=== PATIENT | male | born 1960 | race Caucasian/White ===

== ENCOUNTER 2016-05-27 10:26 | Inpatient (IN) | payer OTHER ==
[~2016-05-27] VITALS: Ht 180.3 cm; Wt 102.0 kg
[~2016-05-27 10:26] MED LIST: ALPR1TAB7 PO; AMLO2.5T78 PO; ATEN50TA PO; BENA20TA48 PO; HYDR-3027 PO; HYDR2TAB3 PO; TRIA1CAP PO
[2016-05-27 10:32] VITALS: Ht 180.3 cm; Wt 102.0 kg
[2016-05-27] MEDS ORDERED: ONDANSETRON 4 MG INJ IV STA (11:46)
[2016-05-27] MEDS ORDERED: morphine 4 MG/ML VIAL IV STA (11:46)
[2016-05-27] MEDS ORDERED: SOD CHLORIDE 0.9% 1,000 ML IV STA (11:46)
--- NOTE | 2016-05-27 11:51 | ERA ---
ER Documentation Chief Complaint Date/Time DATE: 05/27/16 TIME: 11:47 Chief Complaint pt bib family with c/o abd pain and vomiting for a few days HPI Patient is a 55-year-old male who presents with diffuse abdominal pain with nausea and vomiting for the last 2-3 days. He was referred here by his primary care physician after evaluation at their office. He states that the very beginning of the illness he had some diarrhea which is resolved. He says the pain was worse at onset and has a slightly improved. Nothing seems to make the pain better or worse is slightly improved on its own. He is never experienced an illness like this before. He denies any fever, hematemesis, melena, hematochezia, dysuria, hematuria. He denies any flank or back pain, abnormal bleeding, bruising, or rashes. He denies any chest pain, shortness of breath, otalgia, headache, vertigo, dizziness or loss of consciousness. And the remainder review systems are negative. ROS All systems reviewed and are negative except as per history of present illness. Medications Home Meds Reported Medications Lubiprostone* (Amitiza*) 24 Mcg Capsule, 24 MCG PO BID, #60 CAP 05/27/16 Fenofibrate Nanocrystallized* (Fenofibrate*) 145 Mg Tablet, 145 MG PO DAILY, TAB 05/27/16 Oxycodone HCl/Acetaminophen (Percocet 10-325 mg Tablet) 1 Each Tablet, 1 EACH PO QID Y for PAIN, TAB 05/27/16 Paroxetine Hcl* (Paxil*) 20 Mg Tablet, 20 MG PO DAILY, TAB 05/27/16 Gabapentin* (Gabapentin*) 300 Mg Capsule, 300 MG PO QID, #90 CAP 05/27/16 Cyclobenzaprine Hcl* (Cyclobenzaprine Hcl*) 10 Mg Tablet, 10 MG PO QHS Y for MUSCLE SPASMS, #60 TAB 05/27/16 Morphine Sulfate* (Ms Contin*) 15 Mg Tablet.sa, 15 MG PO Q12, TAB 05/27/16 Amlodipine Besylate* (Norvasc*) 5 Mg Tablet, 5 MG PO DAILY, TAB 05/27/16 Benazepril Hcl* (Benazepril Hcl*) 20 Mg Tablet, 20 MG PO DAILY, TAB 01/08/14 Atenolol* (Atenolol*) 50 Mg Tablet, 50 MG PO DAILY, TAB 01/08/14 Triamterene-HCTZ* (Triamterene-HCTZ*) 37.5 - 25 Mg Capsule, 1 CAP PO DAILY, CAP 01/08/14 Discontinued Reported Medications Amlodipine Besylate* (Amlodipine Besylate*) 2.5 Mg Tablet, 5 MG PO DAILY, TAB 01/08/14 Alprazolam* (Alprazolam*) 1 Mg Tablet, 1 MG PO TID Y for AGITATION/ANXIETY, TAB 01/08/14 Hydrocodone Bit/Acetaminophen (Vicodin HP 10-300) 1 Each Tablet, 2 EACH PO Q4H Y for MODERATE PAIN LEVEL 4-6, TAB 01/08/14 Hydromorphone Hcl* (Hydromorphone Hcl*) 2 Mg Tablet, 2 MG PO Q4H Y for PAIN, TAB 01/08/14 Allergies Allergies: Coded Allergies: No Known Allergies (Verified Allergy, Unknown, 05/27/16) PMhx/Soc History of Surgery: No (denies) Anesthesia Reaction: No Hx Neurological Disorder: No Hx Respiratory Disorders: No Hx Cardiac Disorders: Yes (HTN) Hx Psychiatric Problems: No Hx Miscellaneous Medical Probl: Yes (DJD, Htn) Hx Alcohol Use: No Hx Substance Use: No Hx Tobacco Use: No FmHx Family History: coronary disease, diabetes Physical Exam Vitals Vital Signs Date Time Temp Pulse Resp B/P Pulse Ox O2 Delivery O2 Flow Rate FiO2 05/27/16 14:26 98.6 77 19 110/60 97 Room Air 05/27/16 11:55 98.4 78 20 91/55 98 Room Air 05/27/16 10:32 98.4 85 20 91/55 98 Physical Exam Const: [] Well-developed well-nourished male lying on the bed appears ill but nontoxic Head: Atraumatic normocephalic Eyes: Conjunctive appear icteric ENT: Normal External Ears, Nose and Mouth. Neck: Full range of motion..~ No meningismus. Resp: Clear to auscultation bilaterally Cardio: Regular rate and rhythm, no murmurs Abd: Soft, mild tenderness to palpation diffusely, no rebound, no guarding, no masses, non distended. No bowel sounds Skin: No petechiae or rashes Back: No midline or flank tenderness Ext: No cyanosis, or edema Neur: Awake and alert oriented 3 with a GCS of 15 Psych: Normal Mood and Affect Result Diagram: 05/27/16 1150 05/27/16 1150 Results 24 hrs Laboratory Tests Test 05/27/16 11:50 05/27/16 11:52 Activated Partial Thromboplast Time 32.0Sec Alanine Aminotransferase (ALT/SGPT) 359IU/L Albumin 3.8g/dl Albumin/Globulin Ratio 1.26 Alkaline Phosphatase 92IU/L Anion Gap 20 Aspartate Amino Transf (AST/SGOT) 213IU/L Basophils # 0.010^3/ul Basophils % 0.1% Blood Urea Nitrogen 49mg/dl Calcium Level 8.4mg/dl Carbon Dioxide Level 29mmol/L Chloride Level 90mmol/L Creatinine 2.70mg/dl Direct Bilirubin 2.70mg/dl Eosinophils # 0.010^3/ul Eosinophils % 0.0% Globulin 3.00g/dl Glucose Level 111mg/dl Hematocrit 41.9% Hemoglobin 14.0g/dl INR International Normalized Ratio 1.08 Indirect Bilirubin 0.5mg/dl Lipase 1583U/L Lymphocytes # 1.010^3/ul Lymphocytes % 9.0% Mean Corpuscular Hemoglobin 30.4pg Mean Corpuscular Hemoglobin Concent 33.4g/dl Mean Corpuscular Volume 90.9fl Mean Platelet Volume 12.7fl Monocytes # 0.810^3/ul Monocytes % 6.9% Neutrophils # 9.510^3/ul Neutrophils % 83.0% Nucleated Red Blood Cells # 0.010^3/ul Nucleated Red Blood Cells % 0.0/100WBC Platelet Count 37145^3/UL Potassium Level 4.1mmol/L Prothrombin Time 14.0Sec Prothrombin Time Ratio 1.1 Red Blood Count 4.6110^6/ul Red Cell Distribution Width 13.3% Sodium Level 135mmol/L Total Bilirubin 3.2mg/dl Total Protein 6.8g/dl White Blood Count 11.510^3/ul Urine Amorphous Urates FEW Urine Bilirubin 2+ Urine Clarity CLEAR Urine Color ATUL Urine Glucose NEGATIVE% Urine Hemoglobin TRACE Urine Ictotest POSITIVE Urine Ketones NEGATIVE Urine Leukocyte Esterase NEGATIVE Urine Microscopic RBC 0-2/HPF Urine Microscopic WBC NONE SEEN/HPF Urine Nitrite NEGATIVE Urine Specific [place] 1.020 Urine Total Protein TRACE Urine Urobilinogen 0.2 E.U./dL Urine pH 5.5 Current Medications Medications (Trade) Dose Ordered Sig/Elizabeth Route PRN Reason Start Time Stop Time Status Last Admin Dose Admin Sodium Chloride (NS) 1,000 ml @ 1,000 mls/hr Q1H STAT IV 05/27/16 11:46 05/27/16 12:45 DC 05/27/16 12:08 Morphine Sulfate (morphine) 4 mg ONCE STAT IV 05/27/16 11:46 05/27/16 11:48 DC 05/27/16 12:08 Ondansetron HCl (Zofran Inj) 4 mg ONCE STAT IV 05/27/16 11:46 05/27/16 11:48 DC 05/27/16 12:08 Procedures/MDM Differential includes but is not limited to gastroenteritis, cholecystitis, cholangitis, cholelithiasis, pancreatitis, acute hepatitis, bowel obstruction, dehydration CT of the abdomen and pelvis confirmed acute pancreatitis Ultrasound shows cholelithiasis with the common bile duct to be of upper limits , there is some sludging noted too 1439: Patient's examination remains unchanged. I have consulted the hospitalist to have him admitted for further evaluation. I feel that surgery and GI should also be involved in his care at this time. Departure Diagnosis: Primary Impression: Pancreatitis Qualified Code: K85.11 - Acute biliary pancreatitis with uninfected necrosis Additional Impressions: Cholelithiases Qualified Code: K80.71 - Calculus of gallbladder and bile duct with obstruction without cholecystitis Jaundice Abdominal pain Qualified Code: R10.84 - Generalized abdominal pain Condition: ANTOINE Parker May 27, 2016 11:51
[2016-05-27 12:25] LABS: ALBUMIN 3.8 g/dl (3.3-4.9)
[2016-05-27 12:26] LABS: POTASSIUM 4.1 mmol/L (3.5-5.1)
[2016-05-27] MEDS ORDERED: AMLO5TAB4 PO (12:26)
[2016-05-27] MEDS ORDERED: MORP15TA92 PO (12:27)
[2016-05-27 12:28] LABS: ALBUMIN/GLOBULIN RATIO 1.26; BILIRUBIN,DIRECT 2.7 mg/dl (0.00-0.20); BILIRUBIN,INDIRECT 0.5 mg/dl (0-1.1); BILIRUBIN,TOTAL 3.2 mg/dl (0.2-1.3); CREATININE 2.7 mg/dl (0.61-1.24); INR 1.08; PT RATIO 1.1; TOTAL PROTEIN 6.8 g/dl (6.1-8.1)
[2016-05-27] MEDS ORDERED: CYCL-319 PO (12:28)
[2016-05-27 12:29] LABS: CALCIUM 8.4 mg/dl (8.4-10.2)
[2016-05-27] MEDS ORDERED: GABA300C16 PO (12:29)
[2016-05-27] MEDS ORDERED: PARO20TA58 PO (12:29)
[2016-05-27] MEDS ORDERED: OXYC-209 PO (12:30)
[2016-05-27] MEDS ORDERED: FENO145T19 PO (12:30)
[2016-05-27] MEDS ORDERED: LUBI24CA7 PO (12:31)
[2016-05-27 12:36] LABS: ADD UMIC YES; URINE BILIRUBIN (Dip) 2+ (NEGATIVE); URINE BLOOD (Dip) TRACE (NEGATIVE); URINE COLOR AMBER (YELLOW); URINE GLUCOSE (Dip) NEGATIVE (NEGATIVE); URINE KETONES (Dip) NEGATIVE (NEGATIVE); URINE LEUKOCYTE ESTERASE (Dip) NEGATIVE (NEGATIVE); URINE NITRITE (Dip) NEGATIVE (NEGATIVE); URINE TOTAL PROTEIN (Dip) TRACE (NEGATIVE); URINE UROBILINOGEN (Dip) 0.2 E.U./dL (0.1-1.0)
[2016-05-27 12:48] LABS: BASOPHILS % 0.1 % (0.0-2.0); HEMATOCRIT 41.9 % (42.0-52.0); MEAN CORPUSCULAR HEMOGLOBIN 30.4 pg (29.0-33.0); MEAN CORPUSCULAR HGB CONC 33.4 g/dl (32.0-37.0); MEAN CORPUSCULAR VOLUME 90.9 fl (82.0-101.0); MEAN PLATELET VOLUME 12.7 fl (7.4-10.4); MONOCYTES % 6.9 % (0.0-11.0); PLATELET COUNT 186 10^3/UL (140-440); RED BLOOD COUNT 4.61 10^6/ul (4.70-6.10); RED CELL DISTRIBUTION WIDTH 13.3 % (11.5-14.5); UNCORRECTED WBC 11.5 10^3/ul (4.8-10.8); WHITE BLOOD COUNT 11.5 10^3/ul (4.8-10.8)
[2016-05-27 12:49] LABS: MONOCYTE # 0.8 10^3/ul (0.3-0.9); NEUTROPHIL # 9.5 10^3/ul (1.6-7.5)
--- NOTE | 2016-05-27 12:57 | RADRPT ---
PROCEDURE: CT abdomen and pelvis without IV contrast. CLINICAL INDICATION: Abdominal pain TECHNIQUE: CT scan of the abdomen and pelvis without contrast was performed on the [employer] volumetric [address] scanner. The patient was scanned without intravenous contrast. Coronal and sagittal refo rmatted images were obtained from the axial source images. The CTDI vol is 21.88 mGy and the DLP is 1488 mGy-cm. COMPARISON: None. FINDINGS: CT abdomen: Mild ground-glass opacities in the lung bases is seen. A trace left pleural effusion is seen. The remaining lung bases are clear. The heart size is not enlarged and is without pericardial thickenin g or effusion. The liver is normal in size and is without focal mass or intrahepatic biliary dilatation. Fatty infi ltration of the liver is seen. The spleen is normal in size and homogeneous in density. The stomach is grossly unremarkable. mild peripancreatic stranding is seen. In addition, stranding is seen in the bilateral anterior pararenal fascia. The pancreas is otherwise normal in size and contour. No pancreatic ductal dilatation is seen. The gallbladder and biliary tree are unremarkable and there is no evidence for biliary dilatation. The adrenal glands are symmetric and normal. The kidneys ar e symmetrically unremarkable as well. No renal calculus or obstructive uropathy or mass lesion is s een. The aorta is of normal in caliber . There is no retroperitoneal lymphadenopathy. The magdalena hepatis region is clear. The small and large bowel and mesentery, as visualized, are unremarkable. The nor mal appendix is identified. A small volume of ascites is seen. CT pelvis: The pelvic organs are normal. The pelvic sidewalls and inguinal regions are clear. No pelvic mass, lymphadenopathy, or free fluid is seen. No acute inflammation is seen. The urinary bladder is wit hin normal limits. The surrounding osseous structures are unremarkable. No osteolytic or osteoblastic lesion is detect ed. Degenerative spondylosis in the lower thoracic and lumbar spine is seen. Anterior bridging synde smophytes are seen with relative preservation of the disk space is seen in the thoracic spine. A lef t hip arthroplasty is identified. IMPRESSION: 1. Trace left pleural effusion with bibasilar ground-glass opacities. 2. Mild stranding in the peripancreatic region and anterior pararenal fascia, questionable of this represents early pancreatitis. Correlation with amylase and lipase levels may be of value as well a s a short interval follow-up. 3. Small volume of ascites. 4. Fatty infiltration of the liver. RPTAT: HPNM Francisco Forman, Physician Date Time Electronically viewed and signed by Francisco Forman, Physician on 05/27/2016 12:57 /
[2016-05-27 13:05] LABS: ICTOTEST POSITIVE (NEGATIVE)
[2016-05-27 13:07] LABS: URINE RBCS 0-2 /HPF (0)
--- NOTE | 2016-05-27 14:06 | RADRPT ---
PROCEDURE: US Abdomen. CLINICAL INDICATION: Abdominal pain TECHNIQUE: Multiple real-time images were acquired of the patient's right upper quadrant utilizing a high resolution transducer. The images were reviewed on a high-resolution PACS workstation. COMPARISON: None FINDINGS: The liver demonstrates increased echogenicity and size and no focal lesions are seen. The liver ranjith ures 15 cm in size. Multiple gallstones are seen with/. There is no pericholecystic fluid. The gallb ladder wall measures 1.4 mm in size. No intrahepatic biliary dilatation is seen. The common bile d uct measures 6.3 mm in maximal dimension. The pancreas is not well visualized. No free fluid is id entified. The right kidney is of normal size, and demonstrate normal echogenicity and morphology. The right k idney measures 12 cm. There is no dilatation of the right collecting system. There are no perineph antonio fluid collections. There are no areas of increased echogenicity to suggest nephrolithiasis. IMPRESSION: 1. Cholelithiasis and sludge with borderline common bile duct size. 2. Fatty infiltration of the liver. RPTAT: HPNM Physician Gigi Date Time Electronically viewed and signed by Physician Gigi on 05/27/2016 14:05 /
[2016-05-27 14:26] VITALS: TEMP 98.6
[2016-05-27] MEDS ORDERED: ONDANSETRON 4 MG INJ IV PRN ×2 (15:00→16:30)
[2016-05-27] MEDS ORDERED: ACETAMINOPHEN 325 MG TAB PO PRN ×2 (15:00→16:30)
[2016-05-27] MEDS ORDERED: ALBUTEROL/IPRATROPIUM (NEB) 3 ML AMP HHN PRN (16:30)
[2016-05-27] MEDS ORDERED: HYDROCODONE/APAP (5/325) TAB PO PRN (16:30)
[2016-05-27] MEDS ORDERED: DOCUSATE SODIUM 100 MG CAP PO PRN (16:30)
[2016-05-27] MEDS ORDERED: MAGNESIUM HYDROXIDE 30ML CUP PO PRN (16:30)
[2016-05-27] MEDS ORDERED: NACL 0.9% 3 ML SYG IV SCH (16:30)
[2016-05-27] MEDS ORDERED: NA PHOSPHATE/BIPHOS 133 ML ENEMA PR PRN (16:30)
[2016-05-27] MEDS ORDERED: hydrALAzine 20 MG INJ IV PRN (16:30)
[2016-05-27 17:45] LABS: HAAIG REFLEX REFLEX FILED
[2016-05-27] MEDS: SOD CHLORIDE 0.9% 1,000 ML IV SCH ×2 (18:04→19:30)
[2016-05-27] MEDS: morphine 2 MG INJ IV PRN ×2 (18:46→23:11)
[2016-05-27 18:53] LABS: HEPATITIS B CORE ANTIBODY NEGATIVE (NEGATIVE)
[2016-05-27] MEDS ORDERED: INFLUENZA VIRUS VACCINE 0.5 ML SYG IM* ONE (19:30)
[2016-05-27 20:08] VITALS: BP 121/62; RESP 16
[2016-05-27] MEDS: GABAPENTIN 300 MG CAP PO SCH (21:10)
[2016-05-27] MEDS: HEPARIN 5,000 UNIT/0.5 ML SYG SC SCH (21:12)
[2016-05-28] MEDS: LORAZEPAM 2 MG INJ IV PRN ×2 (00:24→14:17)
[2016-05-28] MEDS: morphine 2 MG INJ IV PRN ×5 (03:10→21:02)
--- NOTE | 2016-05-28 03:16 | HP ---
DATE OF ADMISSION: 05/27/2016 CHIEF COMPLAINT: Abdominal pain, nausea, vomiting. HISTORY OF PRESENT ILLNESS: A 55-year-old male with past medical history of degenerative joint dise ase, hypertension, and hepatitis in possible chronic pain who presents with abdominal pain, sort of diffuse in nature. He has also had some nonbilious and nonbloody vomiting and nausea symptoms for t he last 3 days. Apparently he went to his primary care doctor, denied fevers, and primary care doct or stated the patient needed to come in to the ER. The patient also had some diarrhea symptoms that seem to have resolved as well. He stated nothing seems to make the pain feel better or worse. It has slightly improved on its own. He has never had pain like this before. He denied any upper or l ower GI bleeding, no hematuria, no dysuria. No chest pain or shortness of breath. No dizziness or loss of consciousness. When he came into the ER today, his lipase was around 1500. His bilirubin w as 3.2. His AST and ALT were in the 200 to 300 range, and he was showing signs of jaundice as well. PAST MEDICAL HISTORY: As stated above. ALLERGIES: NO KNOWN DRUG ALLERGIES. MEDICATIONS AT HOME: Include 1. Cyclobenzaprine 10 mg at bedtime p.r.n. 2. Norvasc 5 mg daily. 3. Atenolol 50 mg daily. 4. Benazepril 20 mg daily. 5. Phenobarbital 145 mg daily. 6. Gabapentin 300 mg q.i.d. 7. MS Contin 15 mg q. 12 hours. 8. Percocet 10/325 q.i.d. p.r.n. 9. Paxil 20 mg daily. 10. Triamterene/hydrochlorothiazide 37.5/25, one capsule daily. 11. Amitiza 24 mcg b.i.d. FAMILY HISTORY: Positive for diabetes and coronary artery disease. PAST SURGICAL HISTORY: Unknown. SOCIAL HISTORY: Denies alcohol, IV drug abuse, or smoking history. PHYSICAL EXAMINATION: VITAL SIGNS: T-max 98.6, pulse of 77 to 85, respirations 19 to 20, blood pressure 91 to 110 systoli c over 55 to 60 diastolic, saturating at 98% on room air. GENERAL: The patient is lying in bed, answering questions appropriately. No acute distress. HEENT: Pupils equal, round, react to light. Extraocular muscles intact. Sclerae appears to be sli ghtly icteric. NECK: Supple, no thyromegaly. LUNGS: Clear to auscultation bilaterally. CARDIOVASCULAR: S1, S2 heard. No rubs or gallops. ABDOMEN: Mild tenderness to palpation in all 4 quadrants. No rebound or guarding. Decreased bowel sounds. Otherwise soft. MUSCULOSKELETAL: No lower extremity edema bilaterally. NEUROLOGIC: No focal deficits. LABORATORIES: WBC 11.5, hemoglobin 14.0, hematocrit 41.9, platelets 186. Sodium 135, potassium 4.1 , chloride 90, CO2 29, BUN 49, creatinine 2.7, and then he had this lipase is 1583, AST is 213, ALT is 359. Total bilirubin is 3.2, direct is 2.7. Hepatitis C antibody is reactive. IMAGING: Again, CT abdomen and pelvis was performed that showed trace left pleural effusion, bibasi lar ground glass opacity, mild stranding in peripancreatic region and anterior pararenal fascia, ear ly pancreatitis, small volume of ascites, fatty infiltration of the liver. Gallbladder ultrasound, cholelithiasis and sludge with borderline common bile duct size. ASSESSMENT AND PLAN: A 55-year-old male coming in with abdominal pain, nausea, and vomiting for 3 d ays with elevated LFTs and pancreatitis. 1. Abdominal pain secondary to combination of pancreatitis and conjugated hyperbilirubinemia. We w ill get a GI and surgery consults. We will order for MRCP, check TSH, A1c, and lipid panel, trend L FTs as well, check hepatitis panel. The patient may benefit from ERCP, but we will see what MRCP sh ows first. 2. Degenerative joint disease on p.r.n. pain medications. Monitor for now. 3. Questionable history of hypertension based on the home medicine list. Continue hydralazine p.r. n. for now. 4. Gastrointestinal prophylaxis. Proton pump inhibitor. 5. Deep venous thrombosis prophylaxis. Heparin subQ. 6. Renal insufficiency. Creatinine is 2.7. Looking back at records from when the patient was here 2 years ago, creatinine was normal at less than 1.0. The patient is having acute renal failure. W e are going to get renal consult for now and consider low dose IV fluids as well. Dictated By: LAILA DICKSON Conf#: [id number] [facility]#: [id number]
[2016-05-28] MEDS: SOD CHLORIDE 0.9% 1,000 ML IV SCH ×6 (03:22→22:25)
[2016-05-28] MEDS ORDERED: PANTOPRAZOLE 40 MG INJ IV SCH (06:00)
[2016-05-28 06:48] LABS: POTASSIUM 3.3 mmol/L (3.5-5.1)
[2016-05-28 06:51] LABS: CREATININE 2.23 mg/dl (0.61-1.24)
[2016-05-28 06:52] LABS: CALCIUM 7.4 mg/dl (8.4-10.2); MAGNESIUM 1.9 mg/dl (1.7-2.5); PHOSPHORUS 2.4 mg/dl (2.5-4.9)
[2016-05-28 07:00] VITALS: BP 119/62; PULSE 88; RESP 19
--- NOTE | 2016-05-28 07:26 | PN ---
Date/Time of Note Date/Time of Note DATE: 05/28/16 TIME: 07:23 Assessment/Plan VTE Prophylaxis VTE Prophylaxis Intervention: heparin Lines/Catheters IV [facility] Peripheral IV Assessment/Plan Chief Complaint/Hosp Course ASSESSMENT AND PLAN: 55-year-old male coming in with abdominal pain, nausea, and vomiting for 3 days with elevated LFTs and pancreatitis. 1. Abdominal pain - improving - secondary to combination of pancreatitis and conjugated hyperbilirubinemia. Lipase lower toda - f/u GI and surgery consult rec's - f/u MRCP, TSH, A1c, and lipid panel - trend LFTs as well, check hepatitis panel. The patient may benefit from ERCP, but we will see what MRCP shows first. - continue NPO, f/u lipase levels 2. Degenerative joint disease on p.r.n. pain medications. Monitor for now. 3. Questionable history of hypertension based on the home medicine list. Continue hydralazine p.r.n. for now. 4. Gastrointestinal prophylaxis. Proton pump inhibitor. 5. Deep venous thrombosis prophylaxis. Heparin subQ. 6. Renal insufficiency. Creatinine is 2.7- >2.3 Looking back at records from when the patient was here 2 years ago, creatinine was normal at less than 1.0. The patient is having acute renal failure. - continue IVF's, f/u renal consult rec's. - replete low k and Phos Problems: Subjective 24 Hr Interval Summary Free Text/Dictation Pt has less n/v, less abd pain, awaiting MRCP. Exam/Review of Systems Vital Signs Vitals Vital Signs Date Time Temp Pulse Resp B/P Pulse Ox O2 Delivery O2 Flow Rate FiO2 05/27/16 20:08 99.0 79 16 121/62 97 05/27/16 14:26 Room Air Intake and Output 05/27/16 05/27/16 05/28/16 15:00 23:00 07:00 Intake Total 1200 ml Output Total 400 ml Balance 800 ml Exam GENERAL: The patient is lying in bed, answering questions appropriately. No acute distress. HEENT: Pupils equal, round, react to light. Extraocular muscles intact. Sclerae appears to be slightly icteric. NECK: Supple, no thyromegaly. LUNGS: Clear to auscultation bilaterally. CARDIOVASCULAR: S1, S2 heard. No rubs or gallops. ABDOMEN: Mild tenderness to palpation in all 4 quadrants. No rebound or guarding. Decreased bowel sounds. Otherwise soft. MUSCULOSKELETAL: No lower extremity edema bilaterally. NEUROLOGIC: No focal deficits. Results Result Diagram: 05/27/16 1150 05/28/16 0533 Results 24 hrs Laboratory Tests Test 05/27/16 11:50 05/27/16 11:52 05/27/16 17:00 05/28/16 05:33 Activated Partial Thromboplast Time 32.0 Alanine Aminotransferase (ALT/SGPT) 359 H Albumin 3.8 Albumin/Globulin Ratio 1.26 Alkaline Phosphatase 92 Anion Gap 20 H 19 H Aspartate Amino Transf (AST/SGOT) 213 H Basophils # 0.0 Basophils % 0.1 Blood Urea Nitrogen 49 H 43 H Calcium Level 8.4 7.4 L Carbon Dioxide Level 29 24 Chloride Level 90 L 96 L Creatinine 2.70 H 2.23 H Direct Bilirubin 2.70 H Eosinophils # 0.0 Eosinophils % 0.0 Globulin 3.00 Glucose Level 111 89 Hematocrit 41.9 L Hemoglobin 14.0 INR International Normalized Ratio 1.08 Indirect Bilirubin 0.5 Lipase 1583 H 408 H Lymphocytes # 1.0 Lymphocytes % 9.0 L Mean Corpuscular Hemoglobin 30.4 Mean Corpuscular Hemoglobin Concent 33.4 Mean Corpuscular Volume 90.9 Mean Platelet Volume 12.7 H Monocytes # 0.8 Monocytes % 6.9 Neutrophils # 9.5 H Neutrophils % 83.0 H Nucleated Red Blood Cells # 0.0 Nucleated Red Blood Cells % 0.0 Platelet Count 186 Potassium Level 4.1 3.3 L Prothrombin Time 14.0 Prothrombin Time Ratio 1.1 Red Blood Count 4.61 L Red Cell Distribution Width 13.3 Sodium Level 135 136 Total Bilirubin 3.2 H Total Protein 6.8 White Blood Count 11.5 H Urine Amorphous Urates FEW Urine Bilirubin 2+ H Urine Clarity CLEAR Urine Color ATUL Urine Glucose NEGATIVE Urine Hemoglobin TRACE Urine Ictotest POSITIVE Urine Ketones NEGATIVE Urine Leukocyte Esterase NEGATIVE Urine Microscopic RBC 0-2 Urine Microscopic WBC NONE SEEN Urine Nitrite NEGATIVE Urine Specific [place] 1.020 Urine Total Protein TRACE Urine Urobilinogen 0.2 E.U./dL Urine pH 5.5 Free Thyroxine 1.09 Hepatitis B Core Total Antibody NEGATIVE Hepatitis B Surface Antigen NEGATIVE Hepatitis C Antibody REACTIVE H Cholesterol Level 140 Cholesterol/HDL Ratio 5.0 HDL Cholesterol 28 LDL Cholesterol, Calculated 71 Magnesium Level 1.9 Phosphorus Level 2.4 L Thyroid Stimulating Hormone (TSH) Pending Triglycerides Level 205 H Medications Medications Current Medications Ondansetron HCl (Zofran Inj) 4 mg Q6H PRN IV NAUSEA AND/OR VOMITING; Start 05/27 at 16:30 Acetaminophen (Tylenol Tab) 650 mg Q6H PRN PO PAIN LEVEL 1-3 OR FEVER; Start at 16:30 Acetaminophen/ Hydrocodone Bitart (Driver (5/325)) 1 tab Q6H PRN PO MODERATE PAIN LEVEL 4-6; Start 05/27/16 at 16:30 Morphine Sulfate (morphine) 2 mg Q4H PRN IV SEVERE PAIN LEVEL 7-10 Last administered on 05/28/16 07:05; Admin Dose 2 MG; Start 05/27/16 at 16:30 Docusate Sodium (Colace) 100 mg Q12H PRN PO CONSTIPATION; Start 05/27/16 at 16: 30 Magnesium Hydroxide (Milk Of Mag) 30 ml DAILY PRN PO CONSTIPATION; Start at 16:30 Sodium Biphosphate/ Sodium Phosphate (Fleet Enema) 133 ml DAILY PRN [place] CONSTIPATION; Start 05/27/16 at 16:30 Pantoprazole (Protonix Iv) 40 mg DAILY@06 IV Last administered on 05/28/16 05: 35; Admin Dose 40 MG; Start 05/28/16 at 06:00 Heparin Sodium (Porcine) (Heparin (5000 Units/0.5 ml)) 5,000 unit Q12 SC Last administered on 05/27/16 21:12; Admin Dose 5,000 UNIT; Start 05/27/16 at 21:00 Lorazepam 0.5 mg 0.5 mg Q6H PRN IV ANXIETY Last administered on 05/28/16 00:24 ; Admin Dose 0.5 MG; Start 05/27/16 at 16:30 Sodium Chloride (NS) 1,000 ml @ 100 mls/hr Q10H IV Last administered on 03:22; Admin Dose 100 MLS/HR; Start 05/27/16 at 16:25 Hydralazine HCl (Apresoline) 10 mg Q6H PRN IV ELEVATED BLOOD PRESSURE; Start at 16:30 Clonidine (Catapres) 0.1 mg Q6H PRN PO ELEVATED BLOOD PRESSURE; Start 05/27/16 at 16:30 Nitroglycerin 1 tab 1 tab Q5M PRN SL ANGINA; Start 05/27/16 at 16:30 Sodium Chloride (NS) 1,000 ml @ 100 mls/hr Q10H IV ; Start 05/27/16 at 19:30 Gabapentin 300 mg 300 mg TID PO Last administered on 05/27/16t 21:10; Admin Dose 300 MG; Start 05/27/16 at 21:00 Potassium Phosphate/Sodium Chloride (K Phos (Meq)/NS) 254.5455 ml @ 63.636 m... ONCE ONCE IVPB ; Start 05/28/16 at 08:30; Stop 05/28/16 at 12:29 LAILA MOORE May 28, 2016 07:26
[2016-05-28 08:01] LABS: ALBUMIN 3.4 g/dl (3.3-4.9)
[2016-05-28 08:03] LABS: BILIRUBIN,DIRECT 0.7 mg/dl (0.00-0.20); BILIRUBIN,INDIRECT 0.4 mg/dl (0-1.1); BILIRUBIN,TOTAL 1.1 mg/dl (0.2-1.3)
[2016-05-28 08:04] LABS: TOTAL PROTEIN 6.7 g/dl (6.1-8.1)
[2016-05-28] MEDS ORDERED: POTASSIUM PHOSPHATE 20 MEQ in SOD CHLORIDE 0.9% 250 ML IVPB ONE (08:30)
[2016-05-28 08:40] LABS: THYROID STIMULATING HORMONE 0.342 MIU/L (0.465-4.680)
--- NOTE | 2016-05-28 08:41 | CONS ---
Date/Time of Note Date/Time of Note DATE: 05/28/16 TIME: 08:41 Assessment/Plan Assessment/Plan Additional Assessment/Plan Abdominal pain Nausea Vomiting * Evaluate PUD versus cholelithiasis versus pancreatitis * Stool OB Pancreatitis * MRCP 05-27-16 * The liver is normal in size and is without focal mass or intrahepatic biliary dilatation. Fatty infiltration of the liver is seen. The spleen is normal in size and homogeneous in density. The stomach is grossly unremarkable. mild peripancreatic stranding is seen. In addition, stranding is seen in the bilateral anterior pararenal fascia. The pancreas is otherwise normal in size and contour. No pancreatic ductal dilatation is seen. The gallbladder and biliary tree are unremarkable and there is no evidence for biliary dilatation. * ERCP if clinically indicated * Trend labs * N.p.o. * IVF hydration * Recommend surgery consult * May be secondary to lipids versus polypharmacy GERD * PPI therapy Chronic kidney disease * Renally dose medication * May benefit from nephrology consult Hepatitis C * Review hepatitis C serology (genotype and RNA quantitative) Further recommendations depend on clinical course Patient seen in collaboration with Dr. Mcbride Consultation Date/Type/Reason Admit Date/Time May 27, 2016 at 14:57 Type of Consultation: Gastroenterology Reason for Consultation Abdominal pain Hx of Present Illness 55-year-old male that presented to ED with complaints of abdominal pain, nausea , and nonbloody bilious vomiting. Pt states that symptoms started last Sunday with intense epigastric pain, nausea and vomiting. Pt reports last episode of vomiting was this past and has not been able to eat anything at all. Pt denies hematemesis. Pt reports diarrhea only on Sunday but that has resolved. Pt denies blood in stools. Pt reports fever and chills with the symptom onset but that has since resolved. Pt reports sick contacts with stomach flu. Pt denies travel outside [place], recent antibiotic use, EtOH, new medications, and previous episode. Pt denies hx of pancreatics. He states that one time gallstones showed up on a MRI and he was asymptomatic. At that time he declined elective cholecystectomy. Patient has PMH of hepatitis C contracted Hep C via IVDU in 1986 and was treated in 1999 with ribavirin and interferon and states that he has been clear, chronic kidney disease with 40% of kidney function, hypertension, bilateral hip replacement 2 years ago, chronic pain, GERD. Past Medical History Medical History: gallstones, GERD, hepatitis, hypertension Past Surgical History Past Surgical Hx: other (Bilateral hip replacement) Social History Alcohol Use: none Smoking Status: Former smoker Exam/Review of Systems Vital Signs Vitals Vital Signs Date Time Temp Pulse Resp B/P Pulse Ox O2 Delivery O2 Flow Rate FiO2 05/27/16 20:08 99.0 79 16 121/62 97 05/27/16 14:26 Room Air Intake and Output 05/27/16 05/27/16 05/28/16 15:00 23:00 07:00 Intake Total 1200 ml Output Total 400 ml Balance 800 ml Exam Constitutional: alert, oriented, well developed Psych: nl mood/affect Head: normocephalic Eyes: EOMI ENMT: nl external ears & nose, nl lips & teeth, nl nasal mucosa & septum Respiratory: normal air movement Cardiovascular: regular rate and rhythm Gastrointestinal: soft, tender (Epigastric) Musculoskeletal: nl extremities to inspection Neurological: INFORMATION SYSTEMS SECURITY DEVELOPER II-XII intact Results Result Diagram: 05/27/16 1150 05/28/16 0533 Results 24 hrs Laboratory Tests Test 05/27/16 11:50 05/27/16 11:52 05/27/16 17:00 05/28/16 05:33 Activated Partial Thromboplast Time 32.0 Alanine Aminotransferase (ALT/SGPT) 359 H 214 H Albumin 3.8 3.4 Albumin/Globulin Ratio 1.26 Alkaline Phosphatase 92 79 Anion Gap 20 H 19 H Aspartate Amino Transf (AST/SGOT) 213 H 101 #H Basophils # 0.0 Basophils % 0.1 Blood Urea Nitrogen 49 H 43 H Calcium Level 8.4 7.4 L Carbon Dioxide Level 29 24 Chloride Level 90 L 96 L Creatinine 2.70 H 2.23 H Direct Bilirubin 2.70 H 0.70 #H Eosinophils # 0.0 Eosinophils % 0.0 Globulin 3.00 Glucose Level 111 89 Hematocrit 41.9 L Hemoglobin 14.0 INR International Normalized Ratio 1.08 Indirect Bilirubin 0.5 0.4 Lipase 1583 H 408 H Lymphocytes # 1.0 Lymphocytes % 9.0 L Mean Corpuscular Hemoglobin 30.4 Mean Corpuscular Hemoglobin Concent 33.4 Mean Corpuscular Volume 90.9 Mean Platelet Volume 12.7 H Monocytes # 0.8 Monocytes % 6.9 Neutrophils # 9.5 H Neutrophils % 83.0 H Nucleated Red Blood Cells # 0.0 Nucleated Red Blood Cells % 0.0 Platelet Count 186 Potassium Level 4.1 3.3 L Prothrombin Time 14.0 Prothrombin Time Ratio 1.1 Red Blood Count 4.61 L Red Cell Distribution Width 13.3 Sodium Level 135 136 Total Bilirubin 3.2 H 1.1 # Total Protein 6.8 6.7 White Blood Count 11.5 H Urine Amorphous Urates FEW Urine Bilirubin 2+ H Urine Clarity CLEAR Urine Color ATUL Urine Glucose NEGATIVE Urine Hemoglobin TRACE Urine Ictotest POSITIVE Urine Ketones NEGATIVE Urine Leukocyte Esterase NEGATIVE Urine Microscopic RBC 0-2 Urine Microscopic WBC NONE SEEN Urine Nitrite NEGATIVE Urine Specific [address] 1.020 Urine Total Protein TRACE Urine Urobilinogen 0.2 E.U./dL Urine pH 5.5 Free Thyroxine 1.09 Hepatitis B Core Total Antibody NEGATIVE Hepatitis B Surface Antigen NEGATIVE Hepatitis C Antibody REACTIVE H Cholesterol Level 140 Cholesterol/HDL Ratio 5.0 HDL Cholesterol 28 Hemoglobin A1c 5.8 LDL Cholesterol, Calculated 71 Magnesium Level 1.9 Phosphorus Level 2.4 L Thyroid Stimulating Hormone (TSH) 0.342 L Triglycerides Level 205 H Medications Medications Current Medications Ondansetron HCl (Zofran Inj) 4 mg Q6H PRN IV NAUSEA AND/OR VOMITING; Start 05/27 at 16:30 Acetaminophen (Tylenol Tab) 650 mg Q6H PRN PO PAIN LEVEL 1-3 OR FEVER; Start at 16:30 Acetaminophen/ Hydrocodone Bitart ([place] (5/325)) 1 tab Q6H PRN PO MODERATE PAIN LEVEL 4-6; Start 05/27/16 at 16:30 Morphine Sulfate (morphine) 2 mg Q4H PRN IV SEVERE PAIN LEVEL 7-10 Last administered on 05/28/16 07:05; Admin Dose 2 MG; Start 05/27/16 at 16:30 Docusate Sodium (Colace) 100 mg Q12H PRN PO CONSTIPATION; Start 05/27/16 at 16: 30 Magnesium Hydroxide (Milk Of Mag) 30 ml DAILY PRN PO CONSTIPATION; Start at 16:30 Sodium Biphosphate/ Sodium Phosphate (Fleet Enema) 133 ml DAILY PRN [place] CONSTIPATION; Start 05/27/16 at 16:30 Pantoprazole (Protonix Iv) 40 mg DAILY@06 IV Last administered on 05/28/16 05: 35; Admin Dose 40 MG; Start 05/28/16 at 06:00 Heparin Sodium (Porcine) (Heparin (5000 Units/0.5 ml)) 5,000 unit Q12 SC Last administered on 05/27/16 21:12; Admin Dose 5,000 UNIT; Start 05/27/16 at 21:00 Lorazepam 0.5 mg 0.5 mg Q6H PRN IV ANXIETY Last administered on 05/28/16 00:24 ; Admin Dose 0.5 MG; Start 05/27/16 at 16:30 Sodium Chloride (NS) 1,000 ml @ 100 mls/hr Q10H IV Last administered on 03:22; Admin Dose 100 MLS/HR; Start 05/27/16 at 16:25 Hydralazine HCl (Apresoline) 10 mg Q6H PRN IV ELEVATED BLOOD PRESSURE; Start at 16:30 Clonidine (Catapres) 0.1 mg Q6H PRN PO ELEVATED BLOOD PRESSURE; Start 05/27/16 at 16:30 Nitroglycerin 1 tab 1 tab Q5M PRN SL ANGINA; Start 05/27/16 at 16:30 Sodium Chloride (NS) 1,000 ml @ 100 mls/hr Q10H IV ; Start 05/27/16 at 19:30 Gabapentin 300 mg 300 mg TID PO Last administered on 05/27/16 21:10; Admin Dose 300 MG; Start 05/27/16 at 21:00 Potassium Phosphate/Sodium Chloride (K Phos (Meq)/NS) 254.5455 ml @ 63.636 m... ONCE ONCE IVPB ; Start 05/28/16 at 08:30; Stop 05/28/16 at 12:29 LIEN IBANEZ May 28, 2016 08:41
[2016-05-28] MEDS: GABAPENTIN 300 MG CAP PO SCH ×3 (08:42→20:55)
[2016-05-28] MEDS: HEPARIN 5,000 UNIT/0.5 ML SYG SC SCH ×2 (09:06→21:42)
--- NOTE | 2016-05-28 09:31 | CONS ---
Date/Time of Note Date/Time of Note DATE: 05/28/16 TIME: 09:27 Assessment/Plan Assessment/Plan Chief Complaint/Hosp Course 1. Renal Failure- likley early ATN from pancreatitis, at this time will cont aggressive ivf, replete KPhos, adjust meds, watch uop, i/i closely. -will send off urine lytes, reviewed all imaging studies, should improve to baseline given response to fluids last 24 hours. Problems: Consultation Date/Type/Reason Admit Date/Time May 27, 2016 at 14:57 Date of Consultation: May 28, 2016 Reason for Consultation 55 y/o male admitted with abdominal pain, noted to have elevation of creat. Pt. had nl ceat in past. UOP has been adequate, on admit noted acute pancreatitis, pt. started on ivf with improvement of renal function. denies use of nsaids or nephrotoxic meds. Constitutional: No chills, No diaphoresis, No disoriented, No febrile, No improved, No no complaints, No other, No poor po, No requiring IVF, No requiring O2 Eyes: No discharge, No no complaints, No other, No pain, No redness, No visual change ENT: No bleeding, No congestion, No discharge, No dysphagia, No no complaints, No other, No pain, No sore throat Respiratory: No cough, No no complaints, No other, No pain, No pleuritic pain, No shortness of breath, No sputum, No wheezing Cardiovascular: No chest pain, No edema, No lightheadedness, No no complaints, No orthopenea, No other, No palpitations, No paroxysmal nocturnal dyspnea Gastrointestinal: pain Genitourinary: No bleeding, No discharge, No dysuria, No flank pain, No hematuria, No no complaints, No other Musculoskeletal: No back pain, No bone/joint pain, No neck pain, No no complaints, No other, No restricted range of motion, No swelling Family History Significant Family History: no pertinent family hx Social History Smoking Status: Current every day smoker Exam/Review of Systems Vital Signs Vitals Vital Signs Date Time Temp Pulse Resp B/P Pulse Ox O2 Delivery O2 Flow Rate FiO2 05/27/16 20:08 99.0 79 16 121/62 97 05/27/16 14:26 Room Air Intake and Output 05/27/16 05/27/16 05/28/16 15:00 23:00 07:00 Intake Total 1200 ml Output Total 400 ml Balance 800 ml Exam Constitutional: oriented Psych: No anxiety, No confusion, No depression, No nl mood/affect, No no complaints, No other, No suicidal Head: No atraumatic, No hematomas, No lacerations, No normocephalic, No other Eyes: EOMI, PERRL, nl conjunctiva, nl lids, nl sclera ENMT: nl external ears & nose, nl lips & teeth, nl nasal mucosa & septum Neck: non-tender, supple Respiratory: clear to auscultation, normal air movement Cardiovascular: nl pulses, regular rate and rhythm Gastrointestinal: bowel sounds, distended Genitourinary - Male: No CVA tenderness, No discharge, No nl penis, No nl scrotum, No other Musculoskeletal: nl extremities to inspection, nl gait and stance Extremities: normal pulses Neurological: SELLING MANAGER II-XII intact, nl mental status, nl speech, nl strength Results Result Diagram: 05/27/16 1150 05/28/16 0533 Results 24 hrs Laboratory Tests Test 05/27/16 11:50 05/27/16 11:52 05/27/16 17:00 05/28/16 05:33 Activated Partial Thromboplast Time 32.0 Alanine Aminotransferase (ALT/SGPT) 359 H 214 H Albumin 3.8 3.4 Albumin/Globulin Ratio 1.26 Alkaline Phosphatase 92 79 Anion Gap 20 H 19 H Aspartate Amino Transf (AST/SGOT) 213 H 101 #H Basophils # 0.0 Basophils % 0.1 Blood Urea Nitrogen 49 H 43 H Calcium Level 8.4 7.4 L Carbon Dioxide Level 29 24 Chloride Level 90 L 96 L Creatinine 2.70 H 2.23 H Direct Bilirubin 2.70 H 0.70 #H Eosinophils # 0.0 Eosinophils % 0.0 Globulin 3.00 Glucose Level 111 89 Hematocrit 41.9 L Hemoglobin 14.0 INR International Normalized Ratio 1.08 Indirect Bilirubin 0.5 0.4 Lipase 1583 H 408 H Lymphocytes # 1.0 Lymphocytes % 9.0 L Mean Corpuscular Hemoglobin 30.4 Mean Corpuscular Hemoglobin Concent 33.4 Mean Corpuscular Volume 90.9 Mean Platelet Volume 12.7 H Monocytes # 0.8 Monocytes % 6.9 Neutrophils # 9.5 H Neutrophils % 83.0 H Nucleated Red Blood Cells # 0.0 Nucleated Red Blood Cells % 0.0 Platelet Count 186 Potassium Level 4.1 3.3 L Prothrombin Time 14.0 Prothrombin Time Ratio 1.1 Red Blood Count 4.61 L Red Cell Distribution Width 13.3 Sodium Level 135 136 Total Bilirubin 3.2 H 1.1 # Total Protein 6.8 6.7 White Blood Count 11.5 H Urine Amorphous Urates FEW Urine Bilirubin 2+ H Urine Clarity CLEAR Urine Color ATUL Urine Glucose NEGATIVE Urine Hemoglobin TRACE Urine Ictotest POSITIVE Urine Ketones NEGATIVE Urine Leukocyte Esterase NEGATIVE Urine Microscopic RBC 0-2 Urine Microscopic WBC NONE SEEN Urine Nitrite NEGATIVE Urine Specific [place] 1.020 Urine Total Protein TRACE Urine Urobilinogen 0.2 E.U./dL Urine pH 5.5 Free Thyroxine 1.09 Hepatitis B Core Total Antibody NEGATIVE Hepatitis B Surface Antigen NEGATIVE Hepatitis C Antibody REACTIVE H Cholesterol Level 140 Cholesterol/HDL Ratio 5.0 HDL Cholesterol 28 Hemoglobin A1c 5.8 LDL Cholesterol, Calculated 71 Magnesium Level 1.9 Phosphorus Level 2.4 L Thyroid Stimulating Hormone (TSH) 0.342 L Triglycerides Level 205 H Medications Medications Current Medications Ondansetron HCl (Zofran Inj) 4 mg Q6H PRN IV NAUSEA AND/OR VOMITING; Start 05/27 at 16:30 Acetaminophen (Tylenol Tab) 650 mg Q6H PRN PO PAIN LEVEL 1-3 OR FEVER; Start at 16:30 Acetaminophen/ Hydrocodone Bitart ([place] (5/325)) 1 tab Q6H PRN PO MODERATE PAIN LEVEL 4-6 Last administered on 05/28/16 08:44; Admin Dose 1 TAB; Start 05/27 at 16:30 Morphine Sulfate (morphine) 2 mg Q4H PRN IV SEVERE PAIN LEVEL 7-10 Last administered on 05/28/16 07:05; Admin Dose 2 MG; Start 05/27/16 at 16:30 Docusate Sodium (Colace) 100 mg Q12H PRN PO CONSTIPATION; Start 05/27/16 at 16: 30 Magnesium Hydroxide (Milk Of Mag) 30 ml DAILY PRN PO CONSTIPATION; Start at 16:30 Sodium Biphosphate/ Sodium Phosphate (Fleet Enema) 133 ml DAILY PRN [place] CONSTIPATION; Start 05/27/16 at 16:30 Pantoprazole (Protonix Iv) 40 mg DAILY@06 IV Last administered on 05/28/16 05: 35; Admin Dose 40 MG; Start 05/28/16 at 06:00 Heparin Sodium (Porcine) (Heparin (5000 Units/0.5 ml)) 5,000 unit Q12 SC Last administered on 05/28/16 09:06; Admin Dose 5,000 UNIT; Start 05/27/16 at 21:00 Lorazepam 0.5 mg 0.5 mg Q6H PRN IV ANXIETY Last administered on 05/28/16 00:24 ; Admin Dose 0.5 MG; Start 05/27/16 at 16:30 Sodium Chloride (NS) 1,000 ml @ 100 mls/hr Q10H IV Last administered on 03:22; Admin Dose 100 MLS/HR; Start 05/27/16 at 16:25 Hydralazine HCl (Apresoline) 10 mg Q6H PRN IV ELEVATED BLOOD PRESSURE; Start at 16:30 Clonidine (Catapres) 0.1 mg Q6H PRN PO ELEVATED BLOOD PRESSURE; Start 05/27/16 at 16:30 Nitroglycerin 1 tab 1 tab Q5M PRN SL ANGINA; Start 05/27/16 at 16:30 Sodium Chloride (NS) 1,000 ml @ 100 mls/hr Q10H IV ; Start 05/27/16 at 19:30 Gabapentin 300 mg 300 mg TID PO Last administered on 05/28/16 08:42; Admin Dose 300 MG; Start 05/27/16 at 21:00 Potassium Phosphate/Sodium Chloride (K Phos (Meq)/NS) 254.5455 ml @ 63.636 m... ONCE ONCE IVPB ; Start 05/28/16 at 08:30; Stop 05/28/16 at 12:29 JAY LUDWIG MD May 28, 2016 09:31
[2016-05-28 11:07] LABS: BASOPHILS % 0.2 % (0.0-2.0); HEMATOCRIT 33.2 % (42.0-52.0); HEMOGLOBIN 11.2 g/dl (14.0-18.0); LYMPHOCYTES # 0.9 10^3/ul (0.8-2.9); LYMPHOCYTES % 11.2 % (15.0-51.0); MEAN CORPUSCULAR HEMOGLOBIN 30.3 pg (29.0-33.0); MEAN CORPUSCULAR HGB CONC 33.8 g/dl (32.0-37.0); MEAN CORPUSCULAR VOLUME 89.6 fl (82.0-101.0); MEAN PLATELET VOLUME 10.8 fl (7.4-10.4); MONOCYTE # 0.5 10^3/ul (0.3-0.9); MONOCYTES % 6.7 % (0.0-11.0); NEUTROPHIL # 6.6 10^3/ul (1.6-7.5); NEUTROPHILS % 81.9 % (39.0-77.0); PLATELET COUNT 141 10^3/UL (140-440); RED BLOOD COUNT 3.71 10^6/ul (4.70-6.10); RED CELL DISTRIBUTION WIDTH 13.6 % (11.5-14.5); UNCORRECTED WBC 8.1 10^3/ul (4.8-10.8); WHITE BLOOD COUNT 8.1 10^3/ul (4.8-10.8)
[2016-05-28 11:13] LABS: CONDITION 1
--- NOTE | 2016-05-28 12:55 | RADRPT ---
PROCEDURE: MR abdomen CLINICAL INDICATION: Pancreatitis TECHNIQUE: MRCP was performed on the a high-resolution, high Emma field strength scanner. Patien t was examined without contrast. 3-D coronal rotating MIP images of the biliary tree are available for review. COMPARISON: And the right upper quadrant abdominal sonogram done 05/27/2016 The previous sonogram demonstrated cholelithiasis with sludge in the gallbladder. The common bile d uct is borderline prominent and the liver was fatty infiltrated. The previous sonogram demonstrated absent gallbladder and common bile duct dilated to 1.1 cm. FINDINGS: There is cholelithiasis but the gallbladder wall does not appear thickened. The common bile duct is mildly prominent and 7 mm. No choledocholith is evident. There is no strict ure or obstruction. The pancreas is poorly defined with phlegmon extending to the pancreatic bed and into the left anterior pararenal space. The pancreatic duct is not dilated. The liver is mildly e nlarged and appears fatty infiltrated with no focal lesion identified. The spleen appears mildly en larged. No adrenal mass is evident. Pleural the kidneys appear unremarkable without hydronephrosis . The incompletely visualized bowel appears unremarkable without evidence of bowel obstruction. Th ere is a trace of free fluid seen about the tail of the pancreas. The pancreatic duct, as visualized, is equally unremarkable. IMPRESSION: 1. Acute pancreatitis with phlegmon seen through the pancreatic bed diffusely and extending into th e left anterior pararenal space. The pancreatic duct is not dilated. 2. Cholelithiasis without gallbladder wall thickening. The common bile duct is mildly prominent an d 7 mm but no intrinsic filling defect is seen within the common hepatic and common bile duct to sug gest the presence of a choledocholith and no stricture is identified. 3. Mildly enlarged fatty infiltrated liver with no focal lesion. 4. Mild splenomegaly 5. Trace amount of free fluid seen about the tail of the pancreas. Physician Ulysses Date Time Electronically viewed and signed by Physician Ulysses on 05/28/2016 12:54 /
[2016-05-28 13:49] LABS: BASOPHILS % 0.1 % (0.0-2.0); HEMATOCRIT 33.8 % (42.0-52.0); HEMOGLOBIN 11.5 g/dl (14.0-18.0); LYMPHOCYTES # 0.9 10^3/ul (0.8-2.9); LYMPHOCYTES % 10.8 % (15.0-51.0); MEAN CORPUSCULAR HEMOGLOBIN 30.8 pg (29.0-33.0); MEAN CORPUSCULAR HGB CONC 33.9 g/dl (32.0-37.0); MEAN CORPUSCULAR VOLUME 90.9 fl (82.0-101.0); MONOCYTE # 0.6 10^3/ul (0.3-0.9); MONOCYTES % 7.6 % (0.0-11.0); NEUTROPHIL # 6.5 10^3/ul (1.6-7.5); NEUTROPHILS % 81.5 % (39.0-77.0); PLATELET COUNT 138 10^3/UL (140-440); RED BLOOD COUNT 3.72 10^6/ul (4.70-6.10); RED CELL DISTRIBUTION WIDTH 13.7 % (11.5-14.5); UNCORRECTED WBC 7.9 10^3/ul (4.8-10.8); WHITE BLOOD COUNT 7.9 10^3/ul (4.8-10.8)
[2016-05-28 13:50] LABS: CONDITION 1
[2016-05-28] MEDS ORDERED: PAROXETINE 20 MG TAB PO ONE (16:00)
[2016-05-28] MEDS ORDERED: LORAZEPAM 2 MG INJ IV ONE (16:00)
--- NOTE | 2016-05-28 17:06 | CONS ---
[facility] INITIAL INPATIENT CONSULTATION NOTE PLACE OF SERVICE: [facility], 6th floor DATE OF CONSULTATION: 05/28/2016 ASSESSMENT AND PLAN: A very pleasant 55-year-old gentleman with multiple comorbid issues including hepatitis C, chronic pain syndrome and on multiple pain medications, back problems with herniated disk, hypertension, and possible anxiety and depression and hepatitis C that was treated with alpha interferon presenting with gallstone pancreatitis. The pancreatitis appears to be relatively mild and he has a very good chance of a full recovery from it. His gallbladder currently is not inflamed, but my recommendation was for the patient to undergo a laparoscopic, possible open cholecystectomy, preferably towards the end of this admission and if not possible to be done in the next 1 to 2 weeks after discharge from the hospital in an elective fashion. I used printed material and diagrams from up-to-date website and described the anatomy in detail as well as the operation, the risks, benefits and alternatives and answered all the patient's questions to the best of my ability. I believe that the patient understands and wishes to proceed with the plan. With above assessment I have recommended the followin. Continue current management with intravenous fluids as well as pain control. 2. No need for antimicrobial coverage. 3. May advance diet slowly as the patient improves. 4. Schedule the patient for a laparoscopic, possible open cholecystectomy towards the end of this admission preferably. Thank you again for allowing us to participate in the care of this very pleasant gentleman and I am certain his wonderful family. If there are any questions, please feel free to call me at area [phone]. TOTAL VISIT TIME: 45 minutes of which more than half was spent in [id number] discussion with the patient as well as coordination of care between multiple physicians and providers. DATE OF ADMISSION: 05/27/[address] Key: Thank you very much for asking me to get involved as a surgical elastic knitter hand frame in management of Mr. Shalom Boone. UPDATED CLINICAL HISTORY: A very pleasant 55-year-old gentleman with comorbid issues of hepatitis C, treated with interferon and per his report cleared of the infection, BMI of 31.4, degenerative joint disease and recently discovered with a herniated disk that is being managed nonoperatively, hypertension and known history of cholelithiasis, who presented and was admitted through the emergency department at [facility] on 05/27/2016 for abdominal pain associated with nausea and vomiting for 3 days and right upper quadrant ultrasound showing evidence of cholelithiasis and elevated lipase to 1500. COMORBIDITIES: 1. Hepatitis C treated with interferon and reported by the patient to be cleared. 2. Hypertension. 3. Chronic pain. 4. Degenerative joint disease. 5. Herniated disk. 6. BMI 31.4. 7. Known history of cholelithiasis. HISTORY OF PRESENT ILLNESS: The patient is a very pleasant 55-year-old gentleman with above-mentioned comorbidities, who was admitted to [facility] through the emergency department on 05/27/2016 with abdominal pain of 3 days' duration, associated with nausea and vomiting. His workup consisted of laboratory values that demonstrated elevated lipase to around 1500 and elevated liver injury parameters and alkaline phosphatase. Right upper quadrant ultrasound demonstrated the presence of stones and no obvious wall thickening. I had reviewed his information prior to visiting with him and recommended that we obtain an MRCP, which the patient just came back from prior to my visit with him. At my visit, the patient reported no significant abdominal pain, but mainly due to being treated by medications. The patient had known about his cholelithiasis from an MRI that was done about 2 years ago for what was ultimately diagnosed as a herniated disk in his back, and that was treated nonoperatively. He has never had any history of pancreatitis before and this was a new pain for him. ALLERGIES: NO KNOWN DRUG ALLERGIES. MEDICATIONS: 1. Cyclobenzaprine. 2. Norvasc. 3. Tylenol. 4. Donepezil 5. Phenobarbital. 6. Gabapentin. 7. MS Contin. 8. Percocet. 9. Paxil. 10. Triamterene/hydrochlorothiazide. 11. Amitiza. SOCIAL HISTORY: The patient lives with his family. Does not report any history of smoking, drinking, or intravenous drug use. FAMILY HISTORY: No major malignancy reported in the family, but there is history of diabetes and coronary artery disease. REVIEW OF SYSTEMS: Other than the above-mentioned, there are no other pertinent positives or pertinent negatives in a complete 14-point review of systems. PHYSICAL EXAMINATION: GENERAL: The patient appears to be a very pleasant gentleman of non- descent, appearing stated age, lying in bed comfortably and in no acute distress. BMI 31.4. He is afebrile. VITAL SIGNS: Stable. HEENT: Normocephalic and atraumatic. Extraocular muscles and hearing are grossly intact bilaterally and symmetrically. Sclerae are nonicteric. Oral cavity is clear; oral mucosa appeared to be pink and moist. Dentition: fair. NECK: Supple. There is no lymphadenopathy or JVD. There is no submental, submandibular or supraclavicular lymphadenopathy. CHEST: Rises symmetrically with each breath; patient is breathing comfortably. There are no audible wheezes, rales or rhonchi on the gross exam. HEART: Pulse is regular and palpable on the left wrist. Capillary refill was normal. Carotid pulses are palpable bilaterally and symmetrically in the neck. EXTREMITIES: Lower extremities contain no pitting edema around the ankles bilaterally and symmetrically. ABDOMEN: Soft, nontender and nondistended. There is no evidence of organomegaly, caput medusae or engorged subcutaneous veins. There are no peritoneal signs or guarding. SKIN: Appears to be pink and feels warm to touch. NEUROLOGIC: Awake, alert, and follows commands appropriately. LABORATORY VALUES: Reviewed above. IMAGING: Reviewed above. His MRCP report is currently unavailable since it was done so recently, but my review of the images demonstrate normal appearing intrahepatic and extrahepatic biliary system with presence of cholelithiasis. No evidence of choledocholithiasis. There is also no evidence of pancreatic duct dilatation and there is some stranding around the pancreas from a Jodee of this known pancreatitis. Dictated By: MARKUS BLANCHARD/JEREMY Conf#: [id number] DID#: [id number] [facility] HOSPITALJua nCarlos
[2016-05-28] MEDS: PANTOPRAZOLE 40 MG INJ IV SCH (17:07)
[2016-05-28] MEDS: NITROGLYCERIN (SL) 0.4 MG TAB SL PRN ×2 (19:07→21:47)
[2016-05-28 20:09] VITALS: BP 126/75; PULSE 82; RESP 18
[2016-05-29] VITALS (16 sets, daily range): BP systolic 117–134; BP diastolic 55–78; PULSE 62–68; RESP 17–25
[2016-05-29] MEDS: morphine 2 MG INJ IV PRN ×4 (00:57→13:17)
[2016-05-29] MEDS: LORAZEPAM 2 MG INJ IV PRN ×3 (00:58→22:53)
[2016-05-29] MEDS: SOD CHLORIDE 0.9% 1,000 ML IV SCH ×3 (03:18→11:30)
[2016-05-29] MEDS: PANTOPRAZOLE 40 MG INJ IV SCH (05:02)
[2016-05-29 06:29] LABS: BASOPHILS % 0.3 % (0.0-2.0); HEMATOCRIT 31.3 % (42.0-52.0); HEMOGLOBIN 10.9 g/dl (14.0-18.0); MEAN CORPUSCULAR HEMOGLOBIN 31.3 pg (29.0-33.0); MEAN CORPUSCULAR VOLUME 89.5 fl (82.0-101.0); MEAN PLATELET VOLUME 11.8 fl (7.4-10.4); MONOCYTE # 0.5 10^3/ul (0.3-0.9); MONOCYTES % 7.4 % (0.0-11.0); NEUTROPHIL # 5.6 10^3/ul (1.6-7.5); NEUTROPHILS % 78.3 % (39.0-77.0); PLATELET COUNT 147 10^3/UL (140-440); RED BLOOD COUNT 3.49 10^6/ul (4.70-6.10); RED CELL DISTRIBUTION WIDTH 13.3 % (11.5-14.5); UNCORRECTED WBC 7.1 10^3/ul (4.8-10.8); WHITE BLOOD COUNT 7.1 10^3/ul (4.8-10.8)
[2016-05-29 06:43] LABS: CREATININE 1.42 mg/dl (0.61-1.24)
[2016-05-29 06:44] LABS: CALCIUM 7.8 mg/dl (8.4-10.2)
[2016-05-29 06:44] LABS: CONDITION 1
[2016-05-29 07:00] LABS: POTASSIUM 2.9 mmol/L (3.5-5.1)
[2016-05-29 08:58] LABS: ALBUMIN 3.3 g/dl (3.3-4.9)
[2016-05-29] MEDS ORDERED: POTASSIUM CHLORIDE 250 ML IVPB ONE ×2 (09:00)
[2016-05-29 09:01] LABS: BILIRUBIN,INDIRECT 0.4 mg/dl (0-1.1); BILIRUBIN,TOTAL 0.4 mg/dl (0.2-1.3)
[2016-05-29] MEDS: PAROXETINE 20 MG TAB PO SCH (09:16)
[2016-05-29] MEDS: AMLODIPINE 5 MG TAB PO SCH (09:18)
[2016-05-29] MEDS: GABAPENTIN 300 MG CAP PO SCH ×3 (09:18→20:46)
[2016-05-29] MEDS: ATENOLOL 50 MG TAB PO SCH (09:19)
[2016-05-29] MEDS: HEPARIN 5,000 UNIT/0.5 ML SYG SC SCH ×2 (09:36→20:50)
--- NOTE | 2016-05-29 09:41 | PN ---
Date/Time of Note Date/Time of Note DATE: 05/29/16 TIME: 09:36 Assessment/Plan VTE Prophylaxis VTE Prophylaxis Intervention: heparin Lines/Catheters IV Catheter Type (from Nrsg): Peripheral IV Assessment/Plan Assessment/Plan 55-year-old male coming in with abdominal pain, nausea, and vomiting for 3 days with elevated LFTs and pancreatitis. 1. Abdominal pain - improving - secondary to combination of pancreatitis and conjugated hyperbilirubinemia. Lipase lower today - f/u GI and surgery consult rec's - lap rod today 2. Degenerative joint disease on p.r.n. pain medications. Monitor for now. 3. Questionable history of hypertension based on the home medicine list. Continue hydralazine p.r.n. for now. 4. Renal insufficiency. Creatinine is 2.7- >2.3-->1.24 - improving - - continue IVF's, f/u renal consult rec's. - replete low k and Phos, check mag 4. Gastrointestinal prophylaxis. Proton pump inhibitor. 5. Deep venous thrombosis prophylaxis. Heparin subQ. dispo - lap vs open rod today, f/u recs this progress note took greater than 30 minutes to complete Subjective 24 Hr Interval Summary Free Text/Dictation Patient is doing ok today. Otherwise scheduled for lap/possible open for cholecystectomy. Spoke to the nurse about the care plan. 15 minutes spent. Exam/Review of Systems Vital Signs Vitals Vital Signs Date Time Temp Pulse Resp B/P Pulse Ox O2 Delivery O2 Flow Rate FiO2 05/29/16 07:27 98.7 80 18 134/67 96 05/27/16 14:26 Room Air Intake and Output 05/28/16 05/28/16 05/29/16 15:00 23:00 07:00 Intake Total 1054.5455 ml 220 ml Output Total 800 ml Balance 1054.5455 ml -580 ml Exam Gen Kendrick: mild distress 2/2 to abdominal pain, AAOx4 HEENT: NC/AT, PERRLA, EOMI, no pharyngeal erythema, no tonsillar exudates, no lymphadenopathy, no JVD, no carotid bruits NECK: supple, no thyromegaly THORAX: symmetrical, no obvious deformities CV: S1S2, RRR, no M/G/R Lungs: CTAB no W/C/R/R Abd: soft, NT/ND, +BS, no rebound, no guarding, neg HSM EXT: no edema, no ecchymosis, no clubbing, FROM Neuro: CN II-XII grossly intact, no focal deficits Psych: good mentation, alert and oriented, good mood and affect Skin: C/D/I Results Result Diagram: 05/29/16 0510 05/29/16 0519 Results 24 hrs Laboratory Tests Test 05/28/16 10:55 05/28/16 16:00 05/29/16 05:10 05/29/16 05:19 Basophils # 0.0 0.0 Basophils % 0.2 0.3 Blood Morphology Comment Eosinophils # 0.0 0.0 Eosinophils % 0.0 0.0 Hematocrit 33.2 L 31.3 L Hemoglobin 11.2 L 10.9 L Lymphocytes # 0.9 1.0 Lymphocytes % 11.2 L 14.0 L Mean Corpuscular Hemoglobin 30.3 31.3 Mean Corpuscular Hemoglobin Concent 33.8 35.0 Mean Corpuscular Volume 89.6 89.5 Mean Platelet Volume 10.8 H 11.8 H Monocytes # 0.5 0.5 Monocytes % 6.7 7.4 Neutrophils # 6.6 5.6 Neutrophils % 81.9 H 78.3 H Nucleated Red Blood Cells # 0.0 0.0 Nucleated Red Blood Cells % 0.0 0.0 Platelet Count 141 147 Red Blood Count 3.71 L 3.49 L Red Cell Distribution Width 13.6 13.3 White Blood Count 8.1 7.1 Troponin I < 0.012 Alanine Aminotransferase (ALT/SGPT) 154 H Albumin 3.3 Alkaline Phosphatase 84 Amylase Level 66 Anion Gap 20 H Aspartate Amino Transf (AST/SGOT) 67 H Blood Urea Nitrogen 27 #H Calcium Level 7.8 L Carbon Dioxide Level 23 Chloride Level 97 Creatinine 1.42 H Direct Bilirubin 0.00 Glucose Level 92 Indirect Bilirubin 0.4 Lipase 200 Magnesium Level 2.0 Potassium Level 2.9 *L Sodium Level 137 Total Bilirubin 0.0 L Total Protein 6.0 L Medications Medications Current Medications Ondansetron HCl (Zofran Inj) 4 mg Q6H PRN IV NAUSEA AND/OR VOMITING; Start 05/27 at 16:30 Acetaminophen (Tylenol Tab) 650 mg Q6H PRN PO PAIN LEVEL 1-3 OR FEVER; Start at 16:30 Acetaminophen/ Hydrocodone Bitart ([place] (5/325)) 1 tab Q6H PRN PO MODERATE PAIN LEVEL 4-6 Last administered on 05/28/16 08:44; Admin Dose 1 TAB; Start 05/27 at 16:30 Morphine Sulfate (morphine) 2 mg Q4H PRN IV SEVERE PAIN LEVEL 7-10 Last administered on 05/29/16 09:28; Admin Dose 2 MG; Start 05/27/16 at 16:30 Docusate Sodium (Colace) 100 mg Q12H PRN PO CONSTIPATION; Start 05/27/16 at 16: 30 Magnesium Hydroxide (Milk Of Mag) 30 ml DAILY PRN PO CONSTIPATION; Start at 16:30 Sodium Biphosphate/ Sodium Phosphate (Fleet Enema) 133 ml DAILY PRN [place] CONSTIPATION; Start 05/27/16 at 16:30 Heparin Sodium (Porcine) (Heparin (5000 Units/0.5 ml)) 5,000 unit Q12 SC Last administered on 05/28/16 21:42; Admin Dose 5,000 UNIT; Start 05/27/16 at 21:00 Lorazepam 0.5 mg 0.5 mg Q6H PRN IV ANXIETY Last administered on 05/29/16 00:58 ; Admin Dose 0.5 MG; Start 05/27/16 at 16:30 Sodium Chloride (NS) 1,000 ml @ 100 mls/hr Q10H IV Last administered on 18:24; Admin Dose 100 MLS/HR; Start 05/27/16 at 16:25 Hydralazine HCl (Apresoline) 10 mg Q6H PRN IV ELEVATED BLOOD PRESSURE; Start at 16:30 Clonidine (Catapres) 0.1 mg Q6H PRN PO ELEVATED BLOOD PRESSURE; Start 05/27/16 at 16:30 Nitroglycerin 1 tab 1 tab Q5M PRN SL ANGINA Last administered on 05/28/16 21:47 ; Admin Dose 1 TAB; Start 05/27/16 at 16:30 Sodium Chloride (NS) 1,000 ml @ 100 mls/hr Q10H IV Last administered on 03:18; Admin Dose 100 MLS/HR; Start 05/27/16 at 19:30 Gabapentin (Neurontin) 300 mg TID PO Last administered on 05/28/16 20:55; Admin Dose 300 MG; Start 05/27/16 at 21:00 Pantoprazole (Protonix Iv) 40 mg ,18 IV Last administered on 05/29/16 05:02; Admin Dose 40 MG; Start 05/28/16 at 18:00 Amlodipine Besylate (Norvasc) 5 mg DAILY PO ; Start 05/29/16 at 09:00 Atenolol (Tenormin) 50 mg DAILY PO ; Start 05/29/16 at 09:00 Paroxetine HCl 20 mg 20 mg DAILY PO ; Start 05/29/16 at 09:00 Potassium Chloride (KCl 40 MEQ/250 ML NS) 250 ml @ 62.5 mls/hr ONCE ONCE IVPB ; Start 05/29/16 at 09:00; Stop 05/29/16 at 12:59 Procedures Procedures MRCP IMPRESSION: 1. Acute pancreatitis with phlegmon seen through the pancreatic bed diffusely and extending into the left anterior pararenal space. The pancreatic duct is not dilated. 2. Cholelithiasis without gallbladder wall thickening. The common bile duct is mildly prominent and 7 mm but no intrinsic filling defect is seen within the common hepatic and common bile duct to suggest the presence of a choledocholith and no stricture is identified. 3. Mildly enlarged fatty infiltrated liver with no focal lesion. 4. Mild splenomegaly 5. Trace amount of free fluid seen about the tail of the pancreas. DAPHNEY MCCAIN MD May 29, 2016 09:41
--- NOTE | 2016-05-29 10:43 | PN ---
DATE: 05/29/2016 SUBJECTIVE: The patient is stable, no acute events overnight. No fevers, chills, shortness of anabella th. OBJECTIVE: VITAL SIGNS: Blood pressure 134/67, respirations 18, pulse 80, temperature 98.7. I's and O's reviewed. HEENT: Head is normocephalic. NECK: Supple. HEART: Regular rate. LUNGS: Show diminished breath sounds at the base. ABDOMEN: Soft, mild tenderness to palpation. EXTREMITIES: Negative for clubbing, cyanosis, no edema. DERMATOLOGIC: No rashes. MUSCULOSKELETAL: No joint effusions. NEUROLOGIC: No focal deficits. LABORATORY DATA: Shows sodium 137, potassium 3.9, chloride 96, BUN 27, creatinine 1.42, calcium 7.8 . White count 7.1, hemoglobin 10.9, hematocrit 31.3, platelet count is 147. ASSESSMENT AND PLAN: 1. Nonoliguric acute kidney injury on top of chronic kidney disease stage IIIB with a baseline EGFR of 40 mL per minute. Etiology of current acute kidney injury is secondary to acute tubular necrosi s secondary to acute pancreatitis, hemodynamics. The patient's renal function has been improving wi th IV hydration. At this point, continue current treatment plan, supportive care, renally dose all meds, avoid nephrotoxins. 2. Hyperkalemia secondary to total body deficit and IV fluids. We will replete potassium chloride 40 mEq IV x1. 3. Mineral bone disorder. Continue to monitor calcium, phosphorus levels. 4. Anemia. Continue to monitor hemoglobin and hematocrit levels. 5. Acute pancreatitis. The patient has been seen by General Surgery. No plans for surgery at this time. Continue supportive care. Continue IV fluids. A GI consult was placed. The patient may kathie efit from a possible ERCP if clinically indicated. We will follow up with GI for recommendations. 6. History of hypertension. Continue to monitor blood pressure closely. 7. Continue p.r.n. blood pressure medications. 8. History of hepatitis C. Continue to monitor. 9. Chronic pain syndrome. Continue current pain regimen. Dictated By: MCKENZIE VARGAS/JEREMY Conf#: [id number] DID#: [id number]
[2016-05-29] MEDS ORDERED: BUPIVACAINE 0.25%/EPI (SDV) 30 ML INJ ONE (15:18)
[2016-05-29] MEDS ORDERED: ONDANSETRON 4 MG INJ IV PRN (15:30)
[2016-05-29] MEDS ORDERED: MEPERIDINE 25 MG INJ IV PRN (15:30)
[2016-05-29] MEDS ORDERED: DIPHENHYDRAMINE 50 MG INJ IV PRN (15:30)
[2016-05-29] MEDS ORDERED: morphine (1 MG/ML) 10ML SYRINGE IV PRN (15:30)
[2016-05-29] MEDS ORDERED: hydrALAzine 20 MG INJ IV PRN (15:30)
[2016-05-29] MEDS ORDERED: LABETALOL HCL 20MG INJ IV PRN (15:30)
--- NOTE | 2016-05-29 15:37 | HPN ---
Date/Time of Note Date/Time of Note DATE: 05/29/16 TIME: 15:37 Interval H&P Admission Note Pt. seen H&P reviewed: No system changes Pt. seen H&P reviewed. No system changes (I attest that I have seen and examined the patient and reviewed the operation in detail, as well as its risks , benefits and alternatives of the operation). I attest that I have seen and examined the patient and reviewed in detail the operation, and its associated risks, benefits and alternative. I have answered all the patient's questions to the best of my ability and the patient wishes to proceed. Please refer to rest of electronic medical record for additional updates. MARKUS YE M.D. May 29, 2016 15:37
[2016-05-29] MEDS ORDERED: MIDAZOLAM 1 MG/ML 2 ML INJ ONE (15:45)
[2016-05-29] MEDS ORDERED: ETOMIDATE 20 MG INJ ONE (17:28)
[2016-05-29] MEDS ORDERED: PROPOFOL 20 ML ONE (17:28)
[2016-05-29] MEDS ORDERED: LIDOCAINE 100 MG SYRINGE ONE (17:29)
[2016-05-29] MEDS ORDERED: GLYCOPYRROLATE 0.4 MG INJ ONE (17:29)
[2016-05-29] MEDS ORDERED: NEOSTIGMINE 3 MG/3 ML SYRINGE ONE (17:29)
[2016-05-29] MEDS ORDERED: ROCURONIUM 50 MG INJ ONE (17:29)
[2016-05-29] MEDS ORDERED: ONDANSETRON 4 MG INJ ONE (17:29)
[2016-05-29] MEDS ORDERED: FENTAnyl 50 MCG/ML VIAL ONE (17:39)
--- NOTE | 2016-05-29 17:51 | OPR ---
Date/Time of Note Date/Time of Note DATE: 05/29/16 TIME: 17:51 Operative Report Operative Findings [facility] INPATIENT OPERATIVE NOTE PLACE OF SERVICE: [facility] DATE OF SURGERY: 05/29/2016 PREOPERATIVE DIAGNOSIS: 1. Hepatitis C treated with interferon and reported by the patient to be cleared. 2. Hypertension. 3. Chronic pain. 4. Degenerative joint disease. 5. Herniated disk. 6. BMI 31.4. 7. Known history of cholelithiasis. 8. Gallstone pancreatitis POSTOPERATIVE DIAGNOSIS: 1. Hepatitis C treated with interferon and reported by the patient to be cleared. 2. Hypertension. 3. Chronic pain. 4. Degenerative joint disease. 5. Herniated disk. 6. BMI 31.4. 7. Known history of cholelithiasis. 8. Gallstone pancreatitis OPERATION: 1. Laparoscopic cholecystectomy 2. Core needle liver biopsy segment 5 (3 course) SURGEON: Markus Vasquez M.D. COMPANY LAUNDRY WORKER: None ANESTHESIA: General endotracheal tube anesthesia ANESTHESIOLOGIST: Erica Sykes M.D. BRIEF SUMMARY: An otherwise uncomplicated laparoscopic cholecystectomy was performed with findings of acute on chronic cholecystitis. BRIEF HISTORY: The patient is a very pleasant 55-year-old gentleman with comorbid issues of hepatitis C, treated with interferon and per his report cleared of the infection, BMI of 31.4, degenerative joint disease and recently discovered with a herniated disk that is being managed nonoperatively, hypertension and known history of cholelithiasis, who presented and was admitted through the emergency department at [facility] on 07/2016 for abdominal pain associated with nausea and vomiting for 3 days and right upper quadrant ultrasound showing evidence of cholelithiasis and elevated lipase to 1500. After one day in the hospital, the patient's lipase and amylase level is normalized and he was deemed to be an adequate surgical candidate for the operation. I met with the patient (no family present during any my discussions with the patient) and counseled them regarding the possible options of treatment, and I strongly suggested a laparoscopic, possible open cholecystectomy. As part of the reasoning behind my recommendation, I cited the 30% chance of recurrent pancreatitis in this setting if the gallbladder is left behind and the fact that cholecystectomy would be a recommended prophylactic operation this clinical setting. We reviewed the operation in detail as well as the risks, benefits, alternatives, and expected outcomes of this operation. After careful consideration of all the risks, benefits, and alternatives, the patient appeared to understand those risks and wished to proceed with surgery. For a detailed report of my consultation with patient, please refer to my separate consultation note. STATEMENT OF THE INFORMED CONSENT: The patient appeared to understand the risks of the operation to include, but not be limited to risk of postoperative pain and scar tissue, possible infection or bleeding requiring other interventions such as opening the wound, placement of drainage catheters, or other operative interventions; possible injury to surrounding to structures including bowel, bladder, bile duct, or blood vessels, or solid organs such as liver, kidney, or pancreas requiring other interventions or procedures; possible leakage of bile from surgical clip sites, suture lines, or worse, from common bile duct injury, causing significant increase in morbidity and mortality and requiring multiple interventions including but not limited to, placement of drainage catheters, imaging studies, as well as operative interventions; possible other source of sepsis such as urinary tract infections or pneumonias, or other sources of potentially life threatening problems such as deep venous thrombus formation causing pulmonary embolism, myocardial arrhythmias and infarctions, and even . After careful consideration of all their options, the patient and family appeared to understand and wished to proceed with surgery. DESCRIPTION OF PROCEDURE: After obtaining informed consent, the patient was brought into the operating room and was placed in a normal supine position, where successful general endotracheal tube anesthesia was performed. The patient 's abdominal skin was prepped and draped, from the nipple line down to the level of the groins, in the usual sterile fashion. Intravenous access was already in place, and appropriately chosen and dosed prophylactic intravenous antimicrobials were administered. We then called a surgical time-out where patient's identification, date of , nature of the operation, allergies, presence of intravenous antimicrobials, presence of needed equipment, and any other concerns were reviewed and agreed upon by all members of the operating room team. We then started the operation by placing a 5-mm skin incision in the right- upper quadrant, subcostal midclavicular line, and introduced a 5-mm [employer] trocar into the peritoneal space, visualizing all the layers of the abdominal wall as we entered. Note that there was no indication of any injury to underlying structures once we entered the peritoneum. We insufflated the abdominal cavity to a maximum pressure of 15 mmHg, again, confirmed lack of any injury to underlying structures prior to visualizing the rest of the abdominal cavity. We found the fundus of the gallbladder to be visible. There was no evidence of malignancy. No evidence of calcifications or significant issues with adhesions, or other abnormalities. The liver appeared to be healthy. No evidence of cirrhosis was found. Patient had significant intra-abdominal fat. With this information, we went a head and placed the other trocars under direct visualization, after injecting their sites with 0.25% Marcaine with epinephrine , placing a 5-mm trocar in the umbilical midline area, a 5-mm trocar in the right anterior axillary line, and a 12-mm trocar in the midline subxiphoid region. With our instruments in place, we had excellent visualization and access to the right-upper quadrant. We then we grasped the fundus of the gallbladder and pointed up towards the right-upper quadrant. There was mild omental adhesions onto the infundibulum which we took down with judicious use of cautery, as well as meticulous blunt dissection. We were then able to grasp the infundibulum and pull it out in order to expose the critical triangle of Calot. We then placed our usual serosal cuts along the long axis of the gallbladder 1 cm away from its attachment to the liver bed up towards the fundus, and then joined these 2 lines under the infundibulum, taking care not to deliver any energy to underlying structures. We then performed meticulous dissection to identify the critical structures. There was significant amount of scarring in the region of triangle of Calot low. I was able to circumferentially isolate both the cystic duct and the cystic artery, but the cystic duct appeared to be greater in diameter than normal and in order to maximize the degree of safety of the operation, I decided to take the gallbladder top down which created using cautery. Gallbladder wall was entered during this portion of the operation and there was mild spillage of bile that was immediately controlled with suction. A few stones came out of the gallbladder and they were removed promptly using a stone fisher trawl net. One bleeding vessel in the middle of the gallbladder bed was controlled using one application of a 10 mm clip manager stylist. We then took down the rest of the adhesions of the gallbladder onto the liver bed until we had the gallbladder connected to the magdalena hepatis only with the cystic duct and cystic artery. I then transected across the cystic artery between 2 surgical endoclips proximally and one distally using cold scissors. I then used a vascular (white) load of the Endo ARAVIND stapler to transect across the cystic duct. This went without any difficulty and with no technical problems from the stapler. We then delivered the gallbladder out inside of an EndoCatch bag through the 12- mm trocar site without enlarging the fascia or contaminating the wound. The gallbladder was sent to Pathology for evaluation. Returning to the abdominal cavity, we performed core needle liver biopsy from segment 5 given the patient's history of hepatitis C and sent 3 cores to pathology for permanent sections. We then ensured that there was adequate hemostasis and bile-stasis prior to removal of all of or equipment, including the pneumoperitoneum, and then reapproximating the 12-mm trocar site with one [id number] 0 Vicryl suture, followed by washing the wounds with copious amounts of normal saline, and then reapproximating the skin using interrupted 4- 0 Monocryl sutures. Light dressing was then applied. At the end of the operation, both the sponge count and needle count were reportedly correct x2. The patient tolerated the procedure without any reported complications. ESTIMATED BLOOD LOSS: 50 mL BLOOD OR BLOOD PRODUCT TRANSFUSIONS: None to my knowledge. SPECIMENS: 1. Gallbladder 2. Core needle liver biopsy segment 5 (3 cores) COMPLICATIONS: None. DISPOSITION: Recovery area. Disclaimer: Inadvertent spelling and grammatical errors are likely due to EHR/ dictation software use and do not reflect on the quality of delivered patient care. MARKUS VASQUEZ M.D. May 29, 2016 17:51
[2016-05-29] MEDS ORDERED: NA PHOSPHATE/BIPHOS 133 ML ENEMA PR PRN (18:00)
[2016-05-29] MEDS ORDERED: HYDROmorphONE 1 MG/ML SYG IV PRN (18:00)
[2016-05-29] MEDS ORDERED: DOCUSATE SODIUM 100 MG CAP PO PRN (18:00)
[2016-05-29] MEDS ORDERED: HYDROCODONE/APAP (5/325) TAB PO PRN (18:00)
[2016-05-29] MEDS ORDERED: BISACODYL 10 MG SUPP PR PRN (18:00)
[2016-05-29] MEDS: FENTAnyl 50 MCG/ML VIAL IV PRN ×4 (18:03→18:23)
[2016-05-29] MEDS: D5W-0.45 NACL + KCL 20 MEQ 1,000 ML IV SCH (19:03)
[2016-05-29] MEDS: HYDROmorphONE 1 MG/ML SYG IV PRN ×2 (19:55→22:04)
[2016-05-30] MEDS: HYDROmorphONE 1 MG/ML SYG IV PRN ×8 (00:05→17:53)
[2016-05-30] MEDS: D5W-0.45 NACL + KCL 20 MEQ 1,000 ML IV SCH ×2 (04:02→13:57)
[2016-05-30 06:52] LABS: BASOPHILS % 0.1 % (0.0-2.0); EOSINOPHILS % 0.1 % (0.0-7.0); HEMATOCRIT 31.1 % (42.0-52.0); HEMOGLOBIN 10.7 g/dl (14.0-18.0); LYMPHOCYTES # 1.2 10^3/ul (0.8-2.9); LYMPHOCYTES % 15.7 % (15.0-51.0); MEAN CORPUSCULAR HEMOGLOBIN 30.8 pg (29.0-33.0); MEAN CORPUSCULAR HGB CONC 34.4 g/dl (32.0-37.0); MEAN CORPUSCULAR VOLUME 89.5 fl (82.0-101.0); MEAN PLATELET VOLUME 11.3 fl (7.4-10.4); MONOCYTE # 0.9 10^3/ul (0.3-0.9); NEUTROPHIL # 5.8 10^3/ul (1.6-7.5); NEUTROPHILS % 73.1 % (39.0-77.0); PLATELET COUNT 195 10^3/UL (140-440); RED BLOOD COUNT 3.48 10^6/ul (4.70-6.10); RED CELL DISTRIBUTION WIDTH 13.6 % (11.5-14.5); UNCORRECTED WBC 7.9 10^3/ul (4.8-10.8); WHITE BLOOD COUNT 7.9 10^3/ul (4.8-10.8)
[2016-05-30 07:16] LABS: ALBUMIN 3.1 g/dl (3.3-4.9)
[2016-05-30 07:17] LABS: POTASSIUM 3.4 mmol/L (3.5-5.1)
[2016-05-30 07:18] LABS: INR 1.09; PARTIAL THROMBOPLASTIN TIME 36.8 Sec (25.0-35.0); PROTIME 14.1 Sec (12.2-14.2); PT RATIO 1.1
[2016-05-30 07:19] LABS: ALBUMIN/GLOBULIN RATIO 0.96; BILIRUBIN,INDIRECT 0.3 mg/dl (0-1.1); BILIRUBIN,TOTAL 0.3 mg/dl (0.2-1.3); CREATININE 1.22 mg/dl (0.61-1.24); TOTAL PROTEIN 6.3 g/dl (6.1-8.1)
[2016-05-30 07:20] LABS: CALCIUM 7.4 mg/dl (8.4-10.2); MAGNESIUM 1.8 mg/dl (1.7-2.5); PHOSPHORUS 1.1 mg/dl (2.5-4.9)
[2016-05-30 07:30] LABS: CONDITION 1
[2016-05-30 08:15] LABS: ALBUMIN 3.2 g/dl (3.3-4.9)
[2016-05-30 08:18] LABS: BILIRUBIN,INDIRECT 0.2 mg/dl (0-1.1); BILIRUBIN,TOTAL 0.2 mg/dl (0.2-1.3); TOTAL PROTEIN 5.9 g/dl (6.1-8.1)
[2016-05-30] MEDS: PAROXETINE 20 MG TAB PO SCH (08:18)
[2016-05-30] MEDS: AMLODIPINE 5 MG TAB PO SCH (08:18)
[2016-05-30] MEDS: ATENOLOL 50 MG TAB PO SCH (08:18)
[2016-05-30] MEDS: GABAPENTIN 300 MG CAP PO SCH ×2 (08:18→12:08)
[2016-05-30] MEDS: HEPARIN 5,000 UNIT/0.5 ML SYG SC SCH (08:27)
[2016-05-30] MEDS ORDERED: FAMOTIDINE 20 MG INJ IV SCH (09:00)
[2016-05-30] MEDS ORDERED: DOCU-144 PO (09:19)
--- NOTE | 2016-05-30 09:22 | PDOCDIS ---
Discharge Instructions DIAGNOSIS Discharge Diagnosis: Cholelithiasis CONDITION Patient Condition: Stable HOME CARE INSTRUCTIONS: Diet Instructions: Low Fat /CholesterolSpecial Diet: low fat low cholesterol ACTIVITY: Activity Restrictions: Slowly Increase Activity Rest between Activity Avoid heavy lifting FOLLOW UP/APPOINTMENTS Appointments Follow up with Dr. Mp Vasquez in one week. Follow up with your combat systems operator mine warfare in one week. follow up with your primary care physician in one week. OTHER ORDERS: Other Orders: Cholelithiasis - after laparoscopic cholecystectomy - see handout - continue with low fat low cholesterol diet. DAPHNEY MCCAIN MD May 30, 2016 09:22
[2016-05-30] MEDS ORDERED: MAGNESIUM SULFATE 2 GM/50 ML 50 ML IVPB ONE (09:30)
[2016-05-30] MEDS ORDERED: POTASSIUM PHOSPHATE 40 MEQ in SOD CHLORIDE 0.9% 250 ML IVPB SCH (10:30)
--- NOTE | 2016-05-30 10:53 | DS ---
DATE OF ADMISSION: 05/27/2016 DATE OF DISCHARGE: 05/30/2016 DISCHARGE DIAGNOSES: 1. Abdominal pain secondary to pancreatitis with cholelithiasis status post laparoscopic cholecyste ctomy. 2. Degenerative joint disease. 3. Essential hypertension. 4. Renal insufficiency, chronic. HOSPITAL COURSE: This is a 55-year-old male with past medical history of DJD, essential hypertensio n, hepatitis and chronic pain who presents with abdominal pain, diffuse in nature. He was admitted to med/surg for further evaluation and treatment at this time. CONSULTANTS ON THE CASE: Include surgery, Dr. Mp Vasquez of nephrology, as well as GI. Initial laboratory findings had shown that the patient had a chloride of 90, anion gap of 20, BUN an d creatinine of 49 and 2.70, total bilirubin 3.2, direct bilirubin 2.7, indirect bilirubin 0.5, AST of 213, ALT of 359, alkaline phosphatase of 92. Lipase of 1583 that trended down to 408 and 200 and is at 141. Currently his sodium is 134, potassium 3.4, which was repleted. BUN and creatinine 18 and 1.22. Calcium 7.4, phosphorus 1.1, which is repleted. Magnesium 1.8, total bilirubin 0.3, AST 93, ALT 123. This is postoperative. BNP of 950 and albumin 3.1. Initial imaging: CT abdomen and pelvis on 05/27/2016 showin. Trace left pleural effusion with bibasilar ground glass opacities. 2. Mild stranding in the peripancreatic region and anterior pararenal fascia questionable if this r epresents an early pancreatitis. Correlation with amylase and lipase values may be of value as well as a short interval followup. 3. Small volume ascites. 4. Fatty infiltration of the liver. Gallbladder ultrasound showin. Cholelithiasis and sludge with borderline common bile duct size. 2. Fatty infiltration of liver. Abdominal MRI showin. Acute pancreatitis with phlegmon seen through the pancreatic bed diffusely and extending into th e left anterior pararenal space. The pancreatic duct is nondilated. 2. Cholelithiasis without gallbladder wall thickening. Common bile duct is mildly prominent and __ __, but no intrinsic filling defect is seen with the common hepatic and common bile duct to suggest the presence of choledocholith and no strictures identified. 3. Mildly enlarged fatty infiltrated liver with no focal lesion. 4. Mild splenomegaly. 5. Trace amount of free fluid seen about the tail of the pancreas. Microbiology was not done at this time. Vital signs have been stable and he has been afebrile for 24 hours. The patient had been doing bett er, was taken to surgery at this time for removal of his gallbladder and had a successful cholecyste ctomy laparoscopically. Otherwise, on the day of discharge, the patient's pain is improved. No oth er acute complaints. I spoke to the patient about the care plan and agreed with the care plan. DISPOSITION: Home. CONDITION: Stable. DISCHARGE MEDICATIONS: Include: 1. MS Contin 50 mg p.o. q.12h. 2. Colace 100 mg p.o. b.i.d. 3. Norvasc 5 mg p.o. daily. 4. Atenolol 50 mg p.o. daily. 5. Benazepril 20 mg p.o. daily. 6. Cyclobenzaprine 10 mg p.o. at bedtime p.r.n. for muscle spasms. 7. Fenofibrate 145 mg p.o. daily. 8. Gabapentin 300 mg p.o. q.i.d. 9. Amitiza 24 mcg p.o. b.i.d. 10. Percocet 10/325 1 tab p.o. q.i.d. p.r.n. 11. Paxil 20 mg p.o. daily. 12. Triamterene/HCTZ 37.5 and 25 one cap p.o. daily. FOLLOWUP: The patient will follow up with his primary care physician in 1 week. Will follow up [facility] Dr. Mp Vasquez within a week. Will follow up with his drivematic machine operator within a week. Patient and consultants made aware of this and agreed with the plan. COORDINATION OF DISCHARGE: Greater than 40 minutes. Dictated By: DAPHNEY TAMAYO/JEREMY Conf#: [id number] DID#: [id number]
[2016-05-30] MEDS: HYDROCODONE/APAP (5/325) TAB PO PRN ×2 (12:08→15:56)
--- NOTE | 2016-05-30 12:17 | PN ---
DATE: 05/30/2016 SUBJECTIVE: The patient is stable. The patient's pain is improving. The patient is tolerating p.o . No other acute events noted. OBJECTIVE: VITAL SIGNS: Blood pressure 119/61, respiration 18, pulse 64, temperature 97.8. HEENT: Head is normocephalic. NECK: Supple. HEART: Regular rate. LUNGS: Show diminished breath sounds at the base. ABDOMEN: Soft, nontender to palpation. No rebound or guarding. EXTREMITIES: Negative for clubbing, cyanosis, no edema. DERMATOLOGIC: No rashes. MUSCULOSKELETAL: No joint effusions. NEUROLOGIC: No change in exam. MEDICATIONS: The patient's medications have been reviewed. LABORATORY DATA: Shows sodium 134, potassium 4, BUN 18, creatinine 1.22, phosphorus 1.1, calcium 7 .4. White count 7.9, hemoglobin 10.7, ____, platelet count is 195. ASSESSMENT AND PLAN: 1. Nonoliguric acute kidney injury on top of chronic kidney disease stage IIIB with a baseline EGFR of about 40 mL per minute. Etiology of acute kidney injury is secondary to acute tubular necrosis due to acute pancreatitis and hemodynamics. Renal function has improved with supportive care and I V fluids. At this point, continue current treatment plan. Continue supportive care, renally dose a ll meds, avoid nephrotoxins. 2. Hypokalemia, improved. Continue potassium chloride supplementation. 3. Mineral bone disorder. The patient's phosphorus levels are low, will replete with potassium joselin sphate. 4. Anemia. Continue to monitor hemoglobin and hematocrit levels. 5. Acute pancreatitis. The patient is clinically improving, tolerating p.o. and pain is improved. Continue to monitor. 6. History of hypertension. Continue current blood pressure regimen. 7. History of hepatitis C. Continue to monitor. 8. Chronic pain syndrome. Continue current pain regimen. Dictated By: MCKENZIE VARGAS/JEREMY Conf#: [id number] DID#: [id number]
[2016-05-30 18:29] VITALS: BP 101/58; PULSE 64
--- NOTE | 2016-05-30 20:34 | PN ---
Date/Time of Note Date/Time of Note DATE: 05/30/16 TIME: 08:07 Assessment/Plan Lines/Catheters IV Catheter Type (from [facility]): [place] Assessment/Plan Assessment/Plan [facility] Progress Note Date of Service: 05/30/16 Today's Impression & Plan: Overall doing well post op without major issues. No major wound problems. Ok to d/c from my standpoint. With above assessment, I've recommended the following for today: 1. D/c home 2. Instructions: Please call [phone] if any of fever, nausea, vomiting, discharge from wound , wound redness, increase or sudden pain, blood in stool or vomit, or any other unusual signs or symptoms. Also, please call the same number in a few days to schedule an appointment for your follow up visit. Patient may remove dressings tomorrow. Showers OK starting tomorrow. No swimming , hot tub or bath for 2 weeks. No lifting more than 25 lbs for 8 weeks. Thank you again for your great care of this very pleasant patient and wonderful family. If there are any questions, please feel free to call me at [phone]. TOTAL VISIT TIME: 20 minutes of which more than half was spent in [id number] discussion with the patient, possibly including family, as well as coordination of care between multiple physicians and providers. Disclaimer: Inadvertent spelling or grammatical errors are likely due to EHR/ dictation software use and do not reflect on the overall quality of patient care. Updated Clinical Summary: The patient is a very pleasant 55-year-old gentleman with comorbid issues of hepatitis C, treated with interferon and per his report cleared of the infection , BMI of 31.4, degenerative joint disease and recently discovered with a herniated disk that is being managed nonoperatively, hypertension and known history of cholelithiasis, who presented and was admitted through the emergency department at [facility] on 05/27/2016 for abdominal pain associated with nausea and vomiting for 3 days and right upper quadrant ultrasound showing evidence of cholelithiasis and elevated lipase to 1500. After one day in the hospital, the patient's lipase and amylase level is normalized and he was deemed to be an adequate surgical candidate for the operation. S/p laparoscopic cholecystectomy with core needle liver biopsy segment 5 (3 course) on 05/31/16. Comorbidities: 1. Hepatitis C treated with interferon and reported by the patient to be cleared. 2. Hypertension. 3. Chronic pain. 4. Degenerative joint disease. 5. Herniated disk. 6. BMI 31.4. 7. Known history of cholelithiasis. 8. Gallstone pancreatitis Subjective: No major events or complaints; no sig abd pain and under control with medications; no n/v/d; no sob or cp; + flatus; - BM; minimal activity Objective: Vitals: See below Exam: GENERAL: On exam, the patient was sitting up in his bed and appeared to be comfortable and in no acute distress. ABDOMEN: Soft, nontender and nondistended. Incision dressings are clean, dry and intact without any evidence of underlying erythema, edema, discharge, or hernia. There are no peritoneal signs or guarding. SKIN: Skin appears to be pink and feels warm to touch. NEUROLOGIC: Patient is awake, alert, and follows commands appropriately. Exam/Review of Systems Vital Signs Vitals Vital Signs Date Time Temp Pulse Resp B/P Pulse Ox O2 Delivery O2 Flow Rate FiO2 05/30/16 18:29 99.2 64 101/58 95 Room Air 05/29/16 18:52 18 Intake and Output 05/29/16 05/29/16 05/30/16 15:00 23:00 07:00 Intake Total 1100 ml 1580 ml Output Total 1000 ml 1300 ml Balance 100 ml 280 ml Results Result Diagram: 05/30/16 0535 05/30/16 0535 MARKUS YE M.D. May 30, 2016 20:34
--- NOTE | 2016-06-01 11:41 | RADRPT ---
Vent Rate: 75 bpm RR Interval: 0 msec [place] Interval: 184 msec QRS Duration: 102 msec QT Interval: 418 msec QTC Interval: 466 msec P-R-T [place]: 53 - 32 - 15 degrees Normal sinus rhythm T wave abnormality, consider anterior ischemia Prolonged QT Abnormal ECG Electronically Signed By: Philippe Cameron [id number]
== END 2016-05-30 18:50 | disposition home or self-care (01) | DRG 417 ==
LOC: E/R 10:26 → MS2 14:57
PROVIDERS: ADMIT Hospitalist; ATTEND Hospitalist
PROC: 0FB03ZX Excision of Liver, Percutaneous Approach, Diagnostic (ICD-10-PCS; 2016-05-29)
PROC: 0FT44ZZ Resection of Gallbladder, Percutaneous Endoscopic Approach (ICD-10-PCS; principal; 2016-05-29 14:00)
DX: K80.00 Calculus of gallbladder with acute cholecystitis without obstruction (principal); N17.0 Acute kidney failure with tubular necrosis; N17.9 Acute kidney failure, unspecified; G89.29 Other chronic pain; M19.90 Unspecified osteoarthritis, unspecified site; I12.9 Hypertensive chronic kidney disease with stage 1 through stage 4 chronic kidney disease, or unspecified chronic kidney disease; N18.3 Chronic kidney disease, stage 3 (moderate); K21.9 Gastro-esophageal reflux disease without esophagitis; B18.2 Chronic viral hepatitis C; E87.5 Hyperkalemia; D64.9 Anemia, unspecified; K76.0 Fatty (change of) liver, not elsewhere classified; Z96.643 Presence of artificial hip joint, bilateral
CPT/HCPCS: 36415; 74176; 74181; 76705; 80048; 80053; 80061; 80076; 81001; 81003; 82150; 82247; 82248; 83036; 83605; 83690; 83735; 83880; 84100; 84132; 84439; 84443; 84450; 84460; 84484; 85025; 85610; 85730; 86704; 86709; 86803; 87340; 87522; 88304; 88307; 88313; 90686; 93005; 96374; 96375; 97161; C9113; J1170; J2001; J2060; J2250; J2270; J2405; J2710; J3010; J3475; J3480; J7030; J7050

== ENCOUNTER 2016-06-14 13:17 | Outpatient (CLI) | payer OTHER ==
[~2016-06-14] VITALS: Ht 181.6 cm; Wt 96.8 kg
[~2016-06-14 13:17] MED LIST changes: -ALPR1TAB7 PO; -AMLO2.5T78 PO; +AMLO5TAB4 PO; +CYCL-319 PO; +DOCU-144 PO; +FENO145T19 PO; +GABA300C16 PO; -HYDR-3027 PO; -HYDR2TAB3 PO; +LUBI24CA7 PO; +MORP15TA92 PO; +OXYC-209 PO; +PARO20TA58 PO
[2016-06-14 13:27] VITALS: BP 111/65; PULSE 76; RESP 18; Ht 181.6 cm; Wt 96.8 kg
--- NOTE | 2016-06-14 14:00 | PN ---
Date/Time of Note Date/Time of Note DATE: 06/14/16 TIME: 13:44 Assessment/Plan Assessment/Plan Assessment/Plan [facility] Progress Note Date of Service: 06/14/16 Today's Impression & Plan: Overall doing well post op without major issues. No major wound problems. Discussed at length healthier ways of living (15 min counseling time) and importance of f/u with hepatology (making referral to Dr. Erica Smallwood). With above assessment, I've recommended the following for today: 1. F/u with PCP 2. F/u with us prn 3. Hepatology referral (letter being sent to Dr. Smallwood) Thank you again for your great care of this very pleasant patient and wonderful family. If there are any questions, please feel free to call me at [phone]. TOTAL VISIT TIME: 20 minutes of which more than half was spent in [id number] discussion with the patient, possibly including family, as well as coordination of care between multiple physicians and providers. Disclaimer: Inadvertent spelling or grammatical errors are likely due to EHR/ dictation software use and do not reflect on the overall quality of patient care. Updated Clinical Summary: The patient is a very pleasant 55-year-old gentleman with comorbid issues of hepatitis C, treated with interferon and per his report cleared of the infection , BMI of 31.4, degenerative joint disease and recently discovered with a herniated disk that is being managed nonoperatively, hypertension and known history of cholelithiasis, who presented and was admitted through the emergency department at [facility] on 05/27/2016 for abdominal pain associated with nausea and vomiting for 3 days and right upper quadrant ultrasound showing evidence of cholelithiasis and elevated lipase to 1500. After one day in the hospital, the patient's lipase and amylase level is normalized and he was deemed to be an adequate surgical candidate for the operation. S/p laparoscopic cholecystectomy with core needle liver biopsy segment 5 (3 course) on 05/31/16. Pathology: MICROSCOPIC DIAGNOSIS: A-Gallbladder: -- Cholecystitis, mild to moderate. -- There is no evidence of malignancy. -- Cholelithiasis (gross). B-Liver, segment 5, core needle biopsies: -- Macrovesicular steatosis, moderate. -- Bile stasis, mild, focal. -- There is no evidence of steatohepatitis, cirrhosis, or malignancy. Comorbidities: 1. Hepatitis C treated with interferon and reported by the patient to be cleared. 2. Hypertension. 3. Chronic pain. 4. Degenerative joint disease. 5. Herniated disk. 6. BMI 31.4. 7. Known history of cholelithiasis. 8. Gallstone pancreatitis Subjective: No major events or complaints; no abd pain and under control with medications ( taken for chronic pain and somewhat unrelated to recent operation at this time) ; no n/v/d; no sob or cp; + flatus; + BM; + activity Objective: Vitals: See below Exam: GENERAL: On exam, the patient was sitting up in his bed and appeared to be comfortable and in no acute distress. ABDOMEN: Soft, nontender and nondistended. Incision dressings removed from upper midline and umbilical areas; incisions are clean, dry and intact without any evidence of erythema, edema, discharge, or hernia. There are no peritoneal signs or guarding. SKIN: Skin appears to be pink and feels warm to touch. NEUROLOGIC: Patient is awake, alert, and follows commands appropriately. Exam/Review of Systems Vital Signs Vitals Vital Signs Date Time Temp Pulse Resp B/P Pulse Ox O2 Delivery O2 Flow Rate FiO2 06/14/16 13:27 97.6 76 18 111/65 94 Room Air MARKUS YE M.D. Jun 14, 2016 14:00
== END 2016-06-14 16:13 | disposition home or self-care (01) ==
LOC: HPC 13:17
PROVIDERS: ATTEND Transplant Surgery
DX: K80.10 Calculus of gallbladder with chronic cholecystitis without obstruction (principal); E88.89 Other specified metabolic disorders; K83.1 Obstruction of bile duct; B19.20 Unspecified viral hepatitis C without hepatic coma; I10 Essential (primary) hypertension; K85.10 Biliary acute pancreatitis without necrosis or infection
CPT/HCPCS: G0463

== ENCOUNTER 2018-01-02 12:15 | Day surgery (SDC) | END 2018-01-02 17:50 | disposition home or self-care (01) ==